=== PATIENT | male | born 1940 | race Caucasian/White ===

== ENCOUNTER 2018-06-10 06:19 | Day surgery (SDC) | payer MEDICARE, SELFPAY ==
[2018-06-10 06:29] VITALS: BP 143/67; PULSE 68; RESP 14; TEMP 36.3; O2SAT 96
[2018-06-10] MEDS: Lidocaine 2% Multi-Dose 50 ML VIAL (07:20)
--- NOTE | 2018-06-10 07:49 | PDOC.DSDIS_ITS ---
Discharge Plan Disposition Patient Disposition: HOME Discharge Details Reason For Visit: (R) TRIGGER FINGER Attending Provider: Rene Hyde Primary Care Provider: Pj Tolliver Home Meds and New Rx's Prescriptions: No Action blood sugar diagnostic [OneTouch Ultra Test] 1 EACH strip 1 strip Intradermal DAILY Qty: 100 RF: 4 blood-glucose meter [OneTouch Ultra2] 1 EACH kit 1 ea Miscellaneous DAILY Qty: 1 RF: 0 lancets [OneTouch Delica Lancets] 1 EACH misc 1 ea Intradermal DAILY Qty: 100 RF: 4 [id number] [Eye [place] Advantage] 1 EACH capsule 1 ea PO BID RF: 0 metformin 500 MG tablet 500 mg PO qPM Qty: 90 RF: 3 atorvastatin [Lipitor] 10 MG tablet 10 mg PO HS Qty: 90 RF: 4 tamsulosin [Flomax] 0.4 MG capsule 0.4 mg PO HS Qty: 90 RF: 4 fluorouracil 10 ML solution 1 applic Topical BID Qty: 10 RF: 0 Discharge Instructions Additional Instructions: KEEP YOUR RIGHT HAND ELEVATED ABOVE HEART LEVEL MUCH NEEDED TO HELP CONTROL PAIN AND SWELLING. EXERCISE YOUR FINGERS COMFORT ALLOWS. EXPECT SOME BLOODY DRAINAGE ON THE GAUZE BANDAGE. FOR SHOWERING TOMORROW, COVER YOUR BANDAGE WITH A PLASTIC BAG AND A RUBBER BAND ABOUT THE WRIST TO KEEP IT DRY. ON 06/12/18, YOU MAY REMOVE ALL OF YOUR BANDAGES AND GET YOUR WOUND WET IN THE SHOWER WITH SOAP AND WATER. PAT THE STITCH DRY AND COVER WITH A BANDAID. RESUME NORMAL USE TOLERATED. FOLLOW-UP WITH DR. HYDE IN 1 WEEK FOR STITCH REMOVAL. Stand Alone Forms: Elisabeth Mayorga (DSU) Activity:: Elevate Remove Dressings/Wound Care:: 48 hours Shower/Bathe:: 24 hours Activity:: Activity as Tolerated Diet:: As Tolerated Discharge Orders Discharge Orders: Discharge Order (Routine); Ordered 06/10/18 Ordered By: Rene Hyde
--- NOTE | 2018-06-10 08:31 | ROE_ITS ---
REPORT OF OPERATIVE PROCEDURE DATE OF PROCEDURE June 10, 2018 PREOPERATIVE DIAGNOSIS Trigger finger, right ring finger. POSTOPERATIVE DIAGNOSIS Trigger finger, right ring finger. PROCEDURE PERFORMED Release A1 shannon right ring finger. SURGEON Rene Spain M.D. [employer] REPORTER Tech ANESTHESIA Anesthetic 2% lidocaine plain. PREP ChloraPrep. INDICATIONS This patient has had numerous trigger fingers in the past. He developed triggering, which was quite p ainful involving his nondominant right ring finger. I recommended release of the A1 shannon. I saw the patient in the holding area at [facility]. He is well versed in the procedure. I marked his right r ing finger correctly. DESCRIPTION OF PROCEDURE He was brought to the Operating Suite where time-out was instituted. I then prepped his hand with Chl oraPrep; 2% lidocaine was then used to create an anesthetic blockade at the metacarpal phalangeal parminder nt level to the ring finger ray. After ensuring complete anesthesia to the ring finger, a transverse incision was made over the A1 shannon. Loupe magnification was utilized. Dissection was carried down to the flexor tendon sheath. Using a #15-scalpel blade, a small incision was made over the A1 shannon , a small amount of synovial fluid was encountered. I then extended the incision proximally and dista lly. I had the patient flex and extend the fingers until the ring finger no longer triggered. The wou nd was then irrigated with saline and closed with a single suture of #4-0 Nylon in a horizontal mattr ess fashion. The wound was dressed with Xeroform gauze, 4x4s and a 2-inch conforming gauze bandage. T he patient was taken to the Outpatient Recovery Room in satisfactory condition, tolerating the proced ure well.
== END 2018-06-10 08:01 | disposition home or self-care (01) ==
PROVIDERS: PCP Family Medicine; Visit Provider Orthopaedic Surgery
PROC: (CPT 26055; principal; 2018-06-10 07:30)
DX: M65.341 Trigger finger, right ring finger (principal); E11.9 Type 2 diabetes mellitus without complications; Z79.84 Long term (current) use of oral hypoglycemic drugs
CPT/HCPCS: 26055

== ENCOUNTER 2018-08-18 02:37 | Outpatient (CLI) | payer MEDICARE, SELFPAY | END 2018-08-18 02:57 | PROVIDERS: PCP Family Medicine; Visit Provider Family Medicine | DX: E11.9 Type 2 diabetes mellitus without complications (principal) | CPT/HCPCS: 36415; 83036 ==

== ENCOUNTER 2019-02-20 01:41 | Outpatient (CLI) | payer MEDICARE, SELFPAY ==
[2019-02-20 10:58] LABS: CREATININE 1.11 mg/dL (0.70-1.30)
== END 2019-02-20 02:01 ==
PROVIDERS: PCP Family Medicine; Visit Provider Family Medicine
DX: E11.9 Type 2 diabetes mellitus without complications (principal)
CPT/HCPCS: 36415; 82565; 83036

== ENCOUNTER 2019-08-22 02:39 | Outpatient (CLI) | payer MEDICARE, SELFPAY ==
[2019-08-22 14:41] LABS: Hemoglobin A1C 6.1 % (3.8-5.6)
== END 2019-08-22 02:59 ==
PROVIDERS: PCP Family Medicine; Visit Provider Family Medicine
DX: E11.9 Type 2 diabetes mellitus without complications (principal)
CPT/HCPCS: 36415; 83036

== ENCOUNTER 2020-01-25 15:57 | Outpatient (CLI) | payer MEDICARE, SELFPAY ==
--- NOTE | 2020-01-25 09:45 | DI.RAD_ITS ---
EXAM: XR KNEE RT 3V AP,LAT,CASIE CLINICAL HISTORY: Knee pain. TECHNIQUE: 2D digital imaging was performed. FINDINGS: There is moderate narrowing of the medial femoral tibial joint space. Mild periarticular spurring is seen at the posterior patella. There is a well corticated osseous density anterior to the tibial pl ateau which may represent a loose body. No acute fracture or dislocation is present. There is a sma ll joint effusion. Vascular calcifications are seen in the soft tissues. IMPRESSION: Degenerative changes in the right knee. Please see the above discussion for complete details. DATA REPOSITORY: RADIATION DOSE DELIVERED:
--- NOTE | 2020-01-25 09:45 | DI.RAD_ITS ---
EXAM: XR SHOULDER RT COMPLETE 2+V CLINICAL HISTORY: shoulder pain. TECHNIQUE: 2D digital imaging was performed. COMPARISON: CR XR SHOULDER RT COMPLETE 2+V from 01/25/2020 FINDINGS: BONES: No acute fracture is present. No bony destructive lesion is seen. JOINTS: No dislocation present. SOFT TISSUE: Normal. IMPRESSION: Unremarkable radiographs of the right shoulder. DATA REPOSITORY: RADIATION DOSE DELIVERED:
--- NOTE | 2020-01-25 09:45 | DI.RAD_ITS ---
EXAM: XR SHOULDER LT COMPLETE 2+V CLINICAL HISTORY: shoulder pain. TECHNIQUE: 2D digital imaging was performed. COMPARISON: No exams were available for comparison FINDINGS: Degenerative changes are present at the acromioclavicular joint. Well corticated tiny osseous densit ies are seen adjacent to the AC joint which appear old. The glenohumeral joint is well maintained. The bones are normally mineralized. The soft tissues are unremarkable. IMPRESSION: Osteoarthritis of the left AC joint. DATA REPOSITORY: RADIATION DOSE DELIVERED:
== END 2020-01-25 16:17 ==
PROVIDERS: PCP Family Medicine; Referring Provider Family Medicine; Visit Provider Student in an Organized Health Care Education/Training Program
DX: M25.511 Pain in right shoulder (principal); M25.512 Pain in left shoulder; M19.012 Primary osteoarthritis, left shoulder; M25.561 Pain in right knee; M25.461 Effusion, right knee; M17.11 Unilateral primary osteoarthritis, right knee; M75.82 Other shoulder lesions, left shoulder; M75.81 Other shoulder lesions, right shoulder; E11.9 Type 2 diabetes mellitus without complications; Z79.84 Long term (current) use of oral hypoglycemic drugs
CPT/HCPCS: 20610; 73562; 99203; 99214; 73030; J1040

== ENCOUNTER 2020-02-19 07:13 | Emergency (ER) | payer MEDICARE, SELFPAY ==
[2020-02-19 07:20] VITALS: BP 165/88; PULSE 94; RESP 18; TEMP 36.5; O2SAT 97
--- NOTE | 2020-02-19 07:24 | W.ED.GENAD ---
Discharge Plan Disposition Patient Disposition: HOME Condition: Stable Discharge Details Chief Complaint: GenMedical Clinical Impression: Arthritis Primary Care Provider: Pj Tolliver ED Provider: Reanrd Moyer [place] Meds and New Rx's Prescriptions: New prednisone 20 mg tablet 60 mg PO DAILY 4 Days Qty: 12 RF: 0 No Action atorvastatin [Lipitor] 10 mg tablet 10 mg PO HS Qty: 90 RF: 4 metformin 500 mg tablet 500 mg PO qPM Qty: 90 RF: 3 tamsulosin [Flomax] 0.4 mg capsule 0.4 mg PO HS Qty: 90 RF: 4 Eye [place] Advantage 1 EACH capsule 1 ea PO BID RF: 0 ibuprofen 600 mg Tablet 600 mg PO BID RF: 0 Discharge Instructions Instructions: Arthritis (ED), Polymyalgia Rheumatica (ED) Additional Instructions: follow up with your primary care provider this week if you feel more ill, have fevers, chest pain or difficulty breathing or vision changes return to the emergency department Medical Decision Making 80 yo male comes in with all over muscle and joint pains but worse in the upper back and shoulders. Denies fevers, rashes, chest pain, sob, vomit, vision changes. States sometimes it is hard to lift his arms up due to weakness in the shoulders in the morning. ARrivs hd stable with normal gait, no focal deficits, normal vascular exam, no rashes or joint swelling, nih of 0. I suspect he has underlying arthritis and possible pmr given description. Do not feel emergent workup for his arthritis symptoms indicated. Will start him on steroids and have him f/u with pcp, return precautions given Differential Diagnosis Differential Diagnosis: arthritis, osteoarthritis, pmr HPI General Mode of arrival: ambulatory. Date/Time Provider Initiated Documentation: 02/19/20 07:16. Limitations to Documentation: no limitations. Information obtained by: patient. History of Present Illness 80 year old M presents to the emergency department with the chief complaint of diffuse joint and muscle pains, described as moderate, and it has been constant. No relieving factors improve symptom(s), No exacerbating factors reported . Patient did receive the following treatments prior to arrival, none Related Data Home Medications Medication Instructions Recorded Confirmed [id number] 1 ea PO BID 05/24/17 02/19/20 [Eye [place] Advantage Softgel] atorvastatin 10 mg tablet 10 mg PO HS #90 tab-cap 08/29/19 02/19/20 metformin 500 mg tablet 500 mg PO qPM #90 tab-cap 08/29/19 02/19/20 tamsulosin 0.4 mg capsule 0.4 mg PO HS #90 cap 08/29/19 02/19/20 ibuprofen 600 mg PO BID 02/19/20 02/19/20 prednisone 60 mg PO DAILY 4 Days #12 tab 02/19/20 Previous Rx's Medication Instructions Recorded atorvastatin 10 mg tablet 10 mg PO HS #90 tab-cap 08/29/19 metformin 500 mg tablet 500 mg PO qPM #90 tab-cap 08/29/19 tamsulosin 0.4 mg capsule 0.4 mg PO HS #90 cap 08/29/19 prednisone 60 mg PO DAILY 4 Days #12 tab 02/19/20 Allergies Allergy/AdvReac Type Severity Reaction Status Date / Time No Known Allergies Allergy Unverified 02/19/20 07:27 General Stated Complaint: GenMedical NIKITA: 3 Review of Systems All systems reviewed & are unremarkable except as noted in HPI and below Constitutional Constitutional: Denies chills, Denies fever(s) and Denies weakness Cardiovascular Cardiovascular: Denies chest pain and Denies dyspnea Respiratory Respiratory: Denies cough and Denies dyspnea Gastrointestinal Gastrointestinal: Denies abdominal pain, Denies nausea and Denies vomiting Musculoskeletal Musculoskeletal: Denies joint swelling Neurologic Neurologic: Denies weakness [facility] Medical History (Updated 02/19/20 @ 07:25 by Renard Moyer MD) BPH (benign prostatic hyperplasia) DM (diabetes mellitus) Primary malignant neoplasm of colon Systolic murmur Surgical History (Updated 01/25/20 @ 10:02 by JESSICA Guo) 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 neoplasm-cecum Social History Smoking/Tobacco Use Status: Former Tobacco Use Quit Date: 08/16/1964 Second Hand Exposure: Yes Alcohol Intake: current Alcohol Intake frequency: 0-2 drinks per day Alcohol type: beer and hard liquor Drug use: Never Substance use type: does not use Caregiver/Support person: No Household members: spouse Housing: house Communication Needs: Hard of Hearing and Corrective Lenses Do you need help understanding health information?: Rarely Pets and animals: No Sexually active: No Do you think of yourself as: straight/heterosexual Current gender identity: male What is your relationship status?: How often do you talk on the phone with friends or family?: three or more times per week How often do you get together with friends or relatives?: decline to answer How often do you attend pentecostalism or gnosticist services?: decline to answer Do you belong to any clubs or organized social groups?: decline to answer Panel score (0-1 are the most socially isolated patients): 2 What type of physical activity do you participate in: walking Duration: 15-30 minutes/day Frequency: 5-6 times per week Neda/Jehovah'S Witness: Moravian Special neda needs: No Seatbelt use: always Helmet use: No Drive intox or ride w/intox parts delivery driver: No Do you feel safe at home: Yes Do you feel safe in your relationship?: Yes Exam Const General: no acute distress Orientation: alert HENAR Head: normal to inspection Ears: external ears normal General nose exam: external nose normal Mouth: moist mucous membranes Eyes General: appearance normal, both eyes and all related structures Neck Neck: normal visual inspection Resp Effort & Inspection: normal respiratory effort and able to speak in complete sentences Cardio Rate: regular rate Skin General skin exam: no rashes or lesions noted Neuro General: patient alert and patient oriented x3 Extrem General: normal to inspection Psych Mental Status: mental status grossly normal Course Vital Signs Vital signs: Vital Signs Temperature 36.5 C 02/19/20 07:20 Pulse 94 H 02/19/20 07:20 Respiratory Rate 18 02/19/20 07:20 Blood Pressure 165/88 H 02/19/20 07:20 Pulse Oximetry 97 02/19/20 07:20 Temperature 36.5 C 02/19/20 07:20 Temperature Source Skin 02/19/20 07:20 Pulse 94 H 02/19/20 07:20 Respiratory Rate 18 02/19/20 07:20 Blood Pressure 165/88 H 02/19/20 07:20 Blood Pressure Position Sitting 02/19/20 07:20 Pulse Oximetry 97 02/19/20 07:20 Oxygen Delivery Method Room Air 02/19/20 07:20 Oxygen Flow Rate 0 02/19/20 07:20 Pain Level 8 02/19/20 07:20 Comment 02/19/20 07:20
--- NOTE | 2020-02-19 07:27 | NUR.NOTE ---
Nursing Note: Faxed F/U PCP referral to PCP
[2020-02-19 07:29] VITALS: RESP 16
[2020-02-19 07:37] VITALS: BP 165/88; PULSE 94; RESP 16; TEMP 36.5; O2SAT 97
== END 2020-02-19 07:37 | disposition home or self-care (01) ==
PROVIDERS: Emergency Provider Emergency Medicine; PCP Family Medicine
DX: M79.18 Myalgia, other site (principal); M15.9 Polyosteoarthritis, unspecified; E11.9 Type 2 diabetes mellitus without complications; Z79.84 Long term (current) use of oral hypoglycemic drugs
CPT/HCPCS: 99283

== ENCOUNTER 2020-02-20 09:00 | Outpatient (CLI) | payer MEDICARE, SELFPAY ==
[2020-02-20 12:58] LABS: C-Reactive Protein 2.14 mg/dL (0.0-0.3)
[2020-02-20 13:04] LABS: Hemoglobin A1C 6.2 % (3.8-5.6)
[2020-02-20 13:18] LABS: Calculated LDL 76 mg/dL (<100); Cholesterol 163 mg/dL (<200); HDL Cholesterol 65 mg/dL (40-60); Triglyceride 111 mg/dL (<150)
[2020-02-20 13:30] LABS: ESR 35 mm/hr (1-20)
[2020-02-21 11:59] LABS: Lyme Ab w Rflx to Lyme Confirm Negative (Negative)
== END 2020-02-20 09:20 ==
PROVIDERS: PCP Family Medicine; Visit Provider Family Medicine
DX: E11.65 Type 2 diabetes mellitus with hyperglycemia (principal); F48.8 Other specified nonpsychotic mental disorders; M62.81 Muscle weakness (generalized); R73.9 Hyperglycemia, unspecified; E11.9 Type 2 diabetes mellitus without complications
CPT/HCPCS: 36415; 80061; 85652; 82565; 83036; 86140; 86618

== ENCOUNTER 2020-04-10 11:56 | Outpatient (CLI) | payer MEDICARE, SELFPAY ==
[2020-04-10 12:53] LABS: Abs Immature Grans 0.06 10^3/uL (0.0-0.06); Absolute Basophil Count 0.02 10^3/uL (0.0-0.2); Absolute Lymphocyte Count 0.43 10^3/uL (1.2-3.4); Absolute Monocyte Count 0.61 10^3/uL (0.1-0.8); Basophils % 0.3; Eosinophils % 1.7; HCT 39.4 % (40.0-50.0); HGB 13.4 g/dL (13.5-17.5); Lymphocytes % 7.3; MCH 29.3 pg (27.0-33.0); MCV 86.2 fL (80-95); MPV 9.5 fL (8.0-11.0); Monocytes % 10.3; Neutrophils % 79.4; Nucleated RBC 0 %; Platelet Count 241 10^3/uL (130-400); RBC 4.57 10^6/uL (4.36-5.78); RDW 13.2 % (11.8-14.1); RDW-SD 40.4 fL; WBC 5.92 10^3/uL (4.4-10.8)
[2020-04-10 13:40] LABS: C-Reactive Protein 1.49 mg/dL (0.0-0.3)
[2020-04-10 14:14] LABS: ESR 41 mm/hr (1-20)
[2020-04-10 21:25] LABS: Rheumatoid Factor <8.6 IU/mL (<12.0)
[2020-04-11 15:46] LABS: ANA Interpretation Negative (Negative)
[2020-04-12 08:51] LABS: Iron 40 ug/dL (65-175)
[2020-04-12 09:18] LABS: Ferritin 414 ng/mL (26-388); Vitamin B12 273 pg/mL (193-986)
== END 2020-04-10 12:16 ==
PROVIDERS: PCP Family Medicine; Visit Provider Family Medicine
DX: D64.9 Anemia, unspecified (principal); F48.8 Other specified nonpsychotic mental disorders; M25.50 Pain in unspecified joint
CPT/HCPCS: 36415; 85652; 82607; 82728; 83540; 85025; 86038; 86140; 86431

== ENCOUNTER 2020-05-10 01:51 | Outpatient (CLI) | payer MEDICARE, SELFPAY ==
[2020-05-10 13:14] LABS: C-Reactive Protein 0.37 mg/dL (0.0-0.3)
== END 2020-05-10 02:11 ==
PROVIDERS: PCP Family Medicine; Visit Provider Nurse Practitioner Family
DX: M35.3 Polymyalgia rheumatica (principal)
CPT/HCPCS: 36415; 86140

== ENCOUNTER 2020-06-07 20:23 | Emergency (ER) | payer MEDICARE, SELFPAY ==
[2020-06-07 20:25] VITALS: BP 133/79; PULSE 97; RESP 16; O2SAT 94
--- NOTE | 2020-06-07 20:30 | DI.CT_ITS ---
EXAM: CT ABDOMEN PELVIS W CLINICAL HISTORY: gi bleeding, hx of colon cancer w/ resection COMPARISON: CT ABD PELVIS WITH CONTRAST from 07/09/2010 FINDINGS: CT examination of the abdomen and pelvis was performed with a bolus infusion of 100 cc of Omnipaque 3 50. Images obtained through the lung bases show a 6 millimeter in diameter noncalcified left basilar nodule. There is mild gastric distention which is nonspecific. The duodenal wall is thickened. There is a r oughly 10 cm in diameter retroperitoneal mass which appears to involve the head of the pancreas and perhaps the descending duodenum and which encases celiac trunk and SMA. There is associated mesenteri c adenopathy. There is associated retroperitoneal adenopathy in para-aortic and paracaval nodes and r etrocrural nodes, the largest bulky adenopathy is para-aortic and measures up to about 4 cm in diamet er. Tail of the pancreas appears intact. Pancreatic duct nondilated. Gallbladder mildly distended, n o gross common duct dilatation. Mildly dilated collecting system of the right kidney and proximal ur eter, possible obstruction by retroperitoneal process of the proximal ureter. No distal ureteral abn ormality. No left renal abnormality. Adrenals appear intact. No gross small bowel obstruction. Quest ion mild small bowel wall thickening in the mid abdomen, nonspecific. No colonic obstruction. Prior right colectomy noted. Urinary bladder unremarkable in appearance. There is an indeterminate low-attenuation right hepatic lobe lesion measuring about 2.4 cm in diamete r. This measured about 22 millimeters in diameter on prior CT of June 2010 and is unlikely to re present a metastatic lesion. An additional tiny sub diaphragmatic right hepatic lobe lesion is also seen probably representing cyst. No gross focal bony erosive or destructive lesion seen. Abdominal aorta is of normal diameter. There is marked mesenteric edema and/or direct infiltration by the large retroperitoneal mass. IMPRESSION: Large retroperitoneal mass with encasement of major vascular structures, marked mesenteric edema and/ or infiltration, and involvement of adjacent organs including pancreas, duodenum and right ureter. T he presumably neoplastic mass could be pancreatic in origin. Other etiologies not excluded. 6 millimeter in diameter left lower lobe intrapulmonary nodule, not present on prior CT of 2009, inde terminate and could represent metastatic disease. Additional evaluation with chest CT recommended. RADIATION DOSE DELIVERED: 791.08mGy.cm Total DLP
[2020-06-07 20:34] VITALS: BP 133/79; PULSE 90; RESP 16; TEMP 36.2; O2SAT 95
--- NOTE | 2020-06-07 20:46 | NUR.NOTE ---
Nursing Note:referal sent to surgical for arley colonoscopy 06/07/20
--- NOTE | 2020-06-07 20:49 | ED.GENADUL_ITS ---
Discharge Plan Disposition Patient Disposition: HOME Condition: Stable Discharge Details Clinical Impression: Mass of pancreas, BRBPR (bright red blood per rectum) Primary Care Provider: Pj Tolliver ED Provider: Niarj Crump Home Meds and New Rx's Prescriptions: Continued atorvastatin [Lipitor] 10 mg tablet 10 mg PO HS Qty: 90 RF: 4 metformin 500 mg tablet 500 mg PO qPM Qty: 90 RF: 3 tamsulosin [Flomax] 0.4 mg capsule 0.4 mg PO HS Qty: 90 RF: 4 Eye Coolidge Advantage 1 EACH capsule 1 ea PO BID RF: 0 prednisone 10 mg Tablet 12 mg PO DAILY AM RF: 0 Discharge Instructions Instructions: Rectal Bleeding (ED), Pancreatic Cancer (DC) Additional Instructions: At this time the CAT scan shows evidence concerning for a pancreatic mass or cancer. It is important that you follow-up promptly with the surgeon. We have placed a referral with Dr. Cristobal. The blood that you are noticing in your stool may be related to this. At this time your blood levels are stable enough that they do not require additional bladder inpatient management. If you notice any worsening of your symptoms, or any new symptoms such as vomiting, diarrhea, fever, chills, shortness of breath, chest pain, numbness, weakness, or fainting , please return immediately to the emergency department for reevaluation. Please follow up with the surgeon Dr. Cristobal as soon as possible for reassessment and reevaluation. As always, it was a pleasure participating in your medical care today. Referrals: Karie Lanier MD [ [facility] STAFF PHYSICIAN] - Lulu Gomez MD [ [facility] STAFF PHYSICIAN] - Pallavi Pierce DO [OSTEOPATHIC DOCTOR] - Medical Decision Making 80-year-old male with a past medical history of colon cancer, high cholesterol, prostatic hypertrophy, with partial colectomy in 2010 who presents today for evaluation of abdominal pain, diarrhea, and rectal bleeding. The patient states that for the last 3 weeks he has had mild loose stools, with a few episodes of loose diarrhea every day. He did have some outpatient testing performed, including fecal PCR however these results are not yet back as they have been send out test. He did recently start taking Imodium, and this did begin improving his symptoms and his stools are now more formed. However today he noticed that he had bright red blood with his bowel movements. Bowel movements were not overly painful. He denies any significant tearing or searing sensation. He does admit to mild generalized lower abdominal pain, vomiting weight loss. He denies any foreign travel, other sick contacts with similar symptoms, antibiotic use, camping or drinking from streams. He states that last time when his colon cancer was discovered it was discovered by a positive colonoscopy. He denies a history of significant bleeding otherwise. He is not on blood thinners. No other complaints at this time. Exam is unremarkable aside for mild abdominal firmness on the right side of the abdomen, rectal exam benign. No evidence of significant tenderness on palpation, no abdominal distention. I do feel based on history patient definitely needs a colonoscopy not emergently but certainly urgently. We will get a CT scan to evaluate for any significant mass or other abnormality with his history of cancer. We will get basic blood work to evaluate for signs of anemia which I feel unlikely. Vital signs notably stable. No indication for emergent transfusion at this time. Outpatient stool studies were performed by PCP, however study results are not yet back as they were send out test. No risk factors for C. difficile as patient denies any antibiotic use, or other concerning historical components. His diarrhea is notably improving per patient after taking the Imodium. Will manage conservatively, monitor closely and reassess. 11 PM Laboratory work of his return, hemoglobin slightly low at 13, which does appear to be a slight drop since his previous hemoglobin in March, however not critical requiring additional blood products. He does demonstrate notable transaminitis, as well as an elevated conjugated bilirubin at 2, total bilirubin of 2.7, and alk phos of 400 with a lipase of 2200. CT scan results have returned, and show evidence of a notable pancreatic mass thickening of the duodenum, and other abnormalities. Concerning obviously for malignancy. Patient remained stable, he is able to tolerate p.o. fluid, and has had no vomiting. Pain is notably well managed. Bleeding is likely from vascular engorgement in the intestinal tracts with subsequent oozing. He is stable and feels comfortable going home. However I do feel that he would benefit from prompt surgical follow-up. I did contact Dr. Cristobal, and discussed the case with her. She would like to see the patient Wednesday morning for further evaluation potential biopsy and reassessment. I spent a long time discussing symptoms requiring prompt return and further evaluation with both the patient and his who is at bedside. They understand this. I discussed the findings and the current clinical scenario with the patient and he is well aware of the plan moving forward. I have extensively reviewed the treatment plan and discharge instructions with the patient and their family. I have addressed all patient concerns at this time. The patient and family was made aware of what symptoms to monitor for that would warrant a return to the emergency department. Discussed the plan with the patient and family, they demonstrate verbal understanding and agreement with our assessment and plan at this time. HPI General Date/Time Provider Initiated Documentation: 06/07/20 20:28 . HPI Narrative: 80-year-old male with a past medical history of colon cancer, high cholesterol, prostatic hypertrophy, with partial colectomy in 2009 who presents today for evaluation of abdominal pain, diarrhea, and rectal bleeding. The patient states that for the last 3 weeks he has had mild loose stools, with a few episodes of loose diarrhea every day. He did have some outpatient testing performed, including fecal PCR however these results are not yet back as they have been send out test. He did recently start taking Imodium, and this did begin improving his symptoms and his stools are now more formed. However today he noticed that he had bright red blood with his bowel movements. Bowel movements were not overly painful. He denies any significant tearing or searing sensation. He does admit to mild generalized lower abdominal pain, vomiting weight loss. He denies any foreign travel, other sick contacts with similar symptoms, antibiotic use, camping or drinking from streams. He states that last time when his colon cancer was discovered it was discovered by a positive colonoscopy. He denies a history of significant bleeding otherwise. He is not on blood thinners. No other complaints at this time. Related Data Home Medications Medication Instructions Recorded Confirmed Eye Coolidge Advantage 1 ea PO BID 05/24/17 06/07/20 atorvastatin 10 mg tablet 10 mg PO HS #90 tab-cap 08/29/19 06/07/20 metformin 500 mg tablet 500 mg PO qPM #90 tab-cap 08/29/19 06/07/20 tamsulosin 0.4 mg capsule 0.4 mg PO HS #90 cap 08/29/19 06/07/20 prednisone 12 mg PO DAILY AM 06/07/20 06/07/20 Previous Rx's Medication Instructions Recorded atorvastatin 10 mg tablet 10 mg PO HS #90 tab-cap 08/29/19 metformin 500 mg tablet 500 mg PO qPM #90 tab-cap 08/29/19 tamsulosin 0.4 mg capsule 0.4 mg PO HS #90 cap 08/29/19 Allergies Allergy/AdvReac Type Severity Reaction Status Date / Time No Known Allergies Allergy Unverified 06/07/20 20:36 General Stated Complaint: GI Bleed NIKITA: 3 Review of Systems All systems reviewed & are unremarkable except as noted in HPI and below PFSH Medical History BPH (benign prostatic hyperplasia) DM (diabetes mellitus) Primary malignant neoplasm of colon Systolic murmur Surgical History 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 neoplasm-cecum Family History Mother , 96 Dementia Father , 69 Cancer Sister Personal history of malignant neoplasm colon Colon cancer Sister No problems noted. Sister No problems noted. Brother Heart disease pacemaker Maternal Grandfather No problems noted. Paternal Grandfather No problems noted. Maternal Grandmother No problems noted. Paternal Grandmother No problems noted. Daughter Essential hypertension Son No problems noted. Son No problems noted. Social History Smoking/Tobacco Use Status: Former Tobacco Use Quit Date: 08/16/1964 Tobacco: How many years used: 6 Alcohol Intake: current Alcohol Intake frequency: 0-2 drinks per day Alcohol type: beer Substance use type: does not use Caregiver/Support person: No Household members: spouse Communication Needs: Hard of Hearing Do you need help understanding health information?: Often Pets and animals: No Sexually active: No Do you think of yourself as: straight/heterosexual Current gender identity: male What is your relationship status?: How often do you talk on the phone with friends or family?: twice per week How often do you get together with friends or relatives?: decline to answer How often do you attend confucianism or jewish services?: decline to answer Do you belong to any clubs or organized social groups?: no Panel score (0-1 are the most socially isolated patients): 1 What type of physical activity do you participate in: walking Duration: 30-45 minutes/day Frequency: 5-6 times per week Neda/Judaism: [employer] Special neda needs: No Seatbelt use: always Drive intox or ride w/intox route 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 3.ENT: Atraumatic external nose and ears. Moist MM. Neck: Symmetric, trachea midline, No thyromegaly. 4.CVS: +S1/S2, systolic murmur present. Peripheral pulses 2+ and equal in all extremities. Brisk capillary refill in all extremities. 5.RESP: Unlabored respiratory effort. Clear to auscultation bilaterally. No wheezes rales or rhonchi 6.GI: Soft, Nontender/Nondistended, No hepatosplenomegaly. Mild firmness vs mass on right side of upper and lower abd. No guarding or rebound. No evidence of an acute surgical abdomen. Rectal exam demonstrates no evidence of fissure, significant hemorrhoid or active bleed. No current blood. 7.MSK: Normocephalic/Atraumatic, Extremities w/o deformity or ttp No cyanosis or clubbing, Normal movement of all extremities 8.Skin: Warm, Dry. No rashes or lesions. 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 Sensation grossly intact, no focal neurologic deficits. 10.Psych: (AAO) x3. Appropriate mood and affect Course Vital Signs Vital signs: Vital Signs Temperature 36.2 C L 06/07/20 20:34 Pulse 90 06/07/20 20:34 Respiratory Rate 16 06/07/20 20:34 Blood Pressure 133/79 06/07/20 20:34 Pulse Oximetry 95 06/07/20 20:34 Temperature 36.2 C L 06/07/20 20:34 Temperature Source Skin 06/07/20 20:34 Pulse 90 06/07/20 20:34 Respiratory Rate 16 06/07/20 20:34 Respiratory Effort Non-Labored 06/07/20 20:35 Blood Pressure 133/79 06/07/20 20:34 Blood Pressure Position Supine 06/07/20 20:34 Pulse Oximetry 95 06/07/20 20:34 Oxygen Delivery Method Room Air 06/07/20 20:34 Oxygen Flow Rate 0 06/07/20 20:34 Pain Level 2 06/07/20 20:34
[2020-06-07 20:57] LABS: Abs Immature Grans 0.11 10^3/uL (0.0-0.06); Absolute Basophil Count 0.02 10^3/uL (0.0-0.2); Absolute Eosinophil Count 0.03 10^3/uL (0.0-0.7); Absolute Lymphocyte Count 0.36 10^3/uL (1.2-3.4); Absolute Monocyte Count 0.55 10^3/uL (0.1-0.8); Absolute Neutrophil Count 4.27 10^3/uL (1.2-6.7); Basophils % 0.4; Eosinophils % 0.6; HCT 38.6 % (40.0-50.0); Immature Grans % 2.1; Lymphocytes % 6.7; MCH 29.8 pg (27.0-33.0); MCHC 33.7 % (32.0-36.0); MCV 88.5 fL (80-95); MPV 9.8 fL (8.0-11.0); Monocytes % 10.3; Neutrophils % 79.9; Nucleated RBC 0 %; Platelet Count 270 10^3/uL (130-400); RBC 4.36 10^6/uL (4.36-5.78); RDW-SD 44.7 fL; WBC 5.34 10^3/uL (4.4-10.8)
[2020-06-07] MEDS: Normal Saline 500 ML IV (21:03)
[2020-06-07 21:14] LABS: ALT 428 U/L (16-63); AST 329 U/L (15-37); Albumin 3.4 g/dL (3.4-5.0); Alkaline Phosphatase 407 U/L (46-116); BUN 25 mg/dL (7-18); Bilirubin, Total 2.7 mg/dL (0.2-1.0); CREATININE 1.22 mg/dL (0.70-1.30); Calcium 9.5 mg/dL (8.5-10.1); Chloride 99 mmol/L (98-107); Estimated GFR 57.45 (mL/min/1.73m2); Glucose 476 mg/dL (74-106); Potassium 3.9 mmol/L (3.5-5.1); Sodium 135 mmol/L (136-145); Total Protein 7.4 g/dL (6.4-8.2)
[2020-06-07] MEDS: Omnipaque 350 MG/ML 100 ML BTL IJ (21:30)
[2020-06-07] MEDS: Normal Saline - Diluent 50 ML VIAL IV (21:35)
[2020-06-07] MEDS: Normal Saline Flush 10 ML SYR IVP (21:37)
[2020-06-07 21:45] VITALS: BP 124/74; PULSE 72; RESP 16; O2SAT 93
[2020-06-07 21:51] LABS: Bilirubin, Direct 2.07 mg/dL (0.00-0.20)
[2020-06-07 22:03] LABS: Lipase 2275 U/L (73-393)
[2020-06-07 22:15] VITALS: BP 116/69; PULSE 70; RESP 16; O2SAT 93
--- NOTE | 2020-06-07 22:28 | DI.VRAD_ITS ---
Addendum created by Camilo Rodriguez MD on 06/07/2020 10:36:23 PM EDT: THIS REPORT CONTAINS FINDINGS THAT MAY BE CRITICAL TO PATIENT CARE. The findings were verbally communicated via telephone conference with ARIANNA NELSON at 10:32 PM EDT on 06/07/2020. The findings were acknowledged and understood. Also noted, but not discussed in the below report is a retrocrural lymph node on series 4, image 29. This measures approximately 14 x 10 mm. There are multiple retroperitoneal lymph nodes. Enlarged retroperitoneal lymph node is seen left para-aortic measuring 3.9 x 3.0 cm. Additional retroperitoneal enlarged lymph nodes are noted. The possibility of this being a lymphoma post treatment for colon cancer should also be considered. This was discussed with Dr. Nelson. As mentioned in the report, a primary pancreatic process should also be considered. This is less likely metastatic colon cancer, but this cannot be completely excluded based on imaging alone. Patient is also noted to have lung base atelectatic changes and bronchiectasis features. There is mild splenomegaly noted as well. Initial report created on 06/07/2020 10:27:56 PM EDT: PROCEDURE INFORMATION: Exam: CT Abdomen And Pelvis With Contrast Exam date and time: 06/07/2020 9:35 PM Age: 80 years old Clinical indication: Other: Gi bleeding, HX of colon CA w/ resection; Prior surgery; Surgery date: 6+ months TECHNIQUE: Imaging protocol: Computed tomography of the abdomen and pelvis with intravenous contrast. Contrast material: OMNIPAQUE 350; Contrast volume: 100 ml; Contrast route: INTRAVENOUS (IV); COMPARISON: No relevant prior studies available. FINDINGS: Liver: Posterior right hepatic low-attenuation focus measuring 2.4 cm. Significance uncertain. Cannot exclude a small solid liver lesion. Ultrasound evaluation may be helpful for further investigation. Gallbladder and bile ducts: Normal. No calcified stones. No ductal dilation. Pancreas: Masslike features which appear to be arising from the pancreatic head or uncinate process. Spleen: Normal. No splenomegaly. Adrenals: Normal. No mass. Kidneys and ureters: Mild right hydronephrosis which appears to be related to right ureteral involvement posterior to the retroperitoneal mass. No renal calculi. No renal inflammation. Left kidney is unremarkable. Stomach and bowel: Small bowel loops show proximal edema. Distal bowel loops appear to be involved by the mesenteric masslike process. There may be areas of serosal implant. Slight irregularity of small bowel loops is noted within the mid jejunum and proximal ileum. No obstructive features. Colonic diverticulosis. No acute diverticulitis. Previous right hemicolectomy. There is gastric distention. There appears to be some extrinsic compression at the junction of the 2nd and 3rd portion of the duodenum related to the pancreatic head process. Appendix: No evidence of appendicitis. Intraperitoneal space: Retroperitoneal mass encasing the mesenteric vessels adjacent to the pancreatic head. Retroperitoneal space: There is a prominent process which appears to be arising from the retroperitoneum in the region of the pancreatic head. This is a large low-attenuation focus which measures approximately 7.3 x 6.9 cm. Possibility of a pancreatic head mass should be considered. This encases the superior mesenteric artery. This encases the proximal celiac artery. This encases the hepatic artery. This displaces the splenic vein and attenuates the splenic vein. This process extends inferiorly within the mesenteric root along the mesenteric venous structures. There appears to be venous congestion of the superior mesenteric venous tributaries. Vasculature: Encasement of retroperitoneal vasculature. Abdominal aorta is unremarkable. Inferior vena cava is compressed superiorly. Lymph nodes: Unremarkable. No enlarged lymph nodes. Urinary bladder: Unremarkable as visualized. Reproductive: Nonspecific prostatic enlargement. Prostatic calcifications. Some hyperdense regions within the superior prostatic lobules. Significance uncertain. Bones/joints: Degenerative lumbar spine disease. Soft tissues: Unremarkable. IMPRESSION: 1. Large masslike process which appears to be arising within the retroperitoneum and may be related to the pancreatic head or uncinate process. This encases retroperitoneal arteries and venous structures including the celiac artery, hepatic artery, superior mesenteric artery, superior mesenteric vein, and splenic vein. There is extension along the mesentery with what appears to be some venous engorgement of superior mesenteric venous tributaries. With a history of colon cancer and a right colectomy, the possibility of this being metastatic disease should be considered, but this is an atypical appearance for retroperitoneal colon cancer metastases. 2. Right anterior abdominal small bowel loops with some irregularity and possibility of serosal implants or possibly venous congestion. 3. Colonic diverticulosis without acute diverticulitis. Previous right hemicolectomy. 4. Mild right hydronephrosis which may be related to ureteral involvement from the retroperitoneal masslike process. 5. Prostatic enlargement. 6. Gastric distention. Cannot exclude outlet obstruction in the region of the junction of the 2nd and 3rd portion of the duodenum related to extrinsic mass effect. 7. Posterior right hepatic 2.4 cm low-attenuation focus. Cannot exclude a metastatic lesion. Dictated and Authenticated by: Camilo Rodriguez MD. Ordering:KAVIN Healy MD
[2020-06-10 10:59] LABS: Hepatitis A Antibody IgM Negative (Negative); Hepatitis B Core Antibody Negative (Negative); Hepatitis B surface Ag Negative (Negative); Hepatitis C Ab w Rflx HCV PCR Negative (Negative)
== END 2020-06-07 22:55 | disposition home or self-care (01) ==
PROVIDERS: Emergency Provider Student in an Organized Health Care Education/Training Program; PCP Family Medicine
DX: K62.5 Hemorrhage of anus and rectum (principal); R93.5 Abnormal findings on diagnostic imaging of other abdominal regions, including retroperitoneum; R10.30 Lower abdominal pain, unspecified; R74.01 Elevation of levels of liver transaminase levels; R74.8 Abnormal levels of other serum enzymes; Z85.038 Personal history of other malignant neoplasm of large intestine; E11.9 Type 2 diabetes mellitus without complications; Z79.84 Long term (current) use of oral hypoglycemic drugs
CPT/HCPCS: 36415; 80053; 83690; 86704; 86709; 86803; 87340; 96360; 99285; 74177; 82248; 85025; J3490

== ENCOUNTER → 2020-06-10 09:52 | Outpatient (BNVA) | payer MEDICARE, SELFPAY | PROVIDERS: PCP Family Medicine; Referring Provider Family Medicine; Visit Provider Surgery | DX: R69 Illness, unspecified (principal) ==

== ENCOUNTER 2020-06-10 10:37 | Outpatient (CLI) | payer MEDICARE, SELFPAY ==
[2020-06-10 10:54] LABS: Abs Immature Grans 0.09 10^3/uL (0.0-0.06); Absolute Basophil Count 0.02 10^3/uL (0.0-0.2); Absolute Lymphocyte Count 0.18 10^3/uL (1.2-3.4); Absolute Monocyte Count 0.66 10^3/uL (0.1-0.8); Absolute Neutrophil Count 16.91 10^3/uL (1.2-6.7); Basophils % 0.1; HCT 36.4 % (40.0-50.0); Immature Grans % 0.5; MCH 29.8 pg (27.0-33.0); MCV 90.3 fL (80-95); MPV 10.1 fL (8.0-11.0); Monocytes % 3.7; Neutrophils % 94.7; Nucleated RBC 0 %; Platelet Count 237 10^3/uL (130-400); RBC 4.03 10^6/uL (4.36-5.78); RDW 14.5 % (11.8-14.1); RDW-SD 47.2 fL; WBC 17.86 10^3/uL (4.4-10.8)
[2020-06-10 11:06] LABS: ALT 539 U/L (16-63); AST 306 U/L (15-37); Alkaline Phosphatase 596 U/L (46-116); Anion Gap 8.8 mmol/L (3-11); BUN 23 mg/dL (7-18); Bilirubin, Total 6.3 mg/dL (0.2-1.0); CO2 25.2 mmol/L (21.0-32.0); CREATININE 1.13 mg/dL (0.70-1.30); Calcium 9.2 mg/dL (8.5-10.1); Chloride 99 mmol/L (98-107); Glucose 486 mg/dL (74-106); Potassium 4.2 mmol/L (3.5-5.1); Sodium 133 mmol/L (136-145); Total Protein 6.7 g/dL (6.4-8.2)
[2020-06-10 18:59] LABS: CEA 62.4 ng/mL (See Note)
[2020-06-18 16:09] LABS: CA 19-9 1400 U/mL (<35)
== END 2020-06-10 10:57 ==
PROVIDERS: PCP Family Medicine; Visit Provider Surgery
DX: K86.89 Other specified diseases of pancreas (principal); Z85.038 Personal history of other malignant neoplasm of large intestine; E11.9 Type 2 diabetes mellitus without complications; Z79.84 Long term (current) use of oral hypoglycemic drugs
CPT/HCPCS: 36415; 80053; 99213; 82378; 85025; 86301

== ENCOUNTER 2020-06-17 08:59 | Inpatient (IN) | payer MEDICARE, SELFPAY ==
[2020-06-17] VITALS (61 sets, daily range): BP systolic 45–134; BP diastolic 30–99; PULSE 87–117; RESP 9–26; TEMP 36.5–36.9; O2SAT 90–100
--- NOTE | 2020-06-17 09:00 | DI.RAD_ITS ---
EXAM: XR CHEST 1V IN DI DEPT CLINICAL HISTORY: weakness, tachycardia TECHNIQUE: 2D digital imaging was performed. COMPARISON: No exams were available for comparison FINDINGS: MEDIASTINUM: Normal. HEART: Normal. PULMONARY VASCULATURE: Normal. LUNGS: Clear. PLEURAL SPACE: No pleural effusion or pneumothorax. BONE:Within normal limits for the patient's age. OTHER FINDINGS:Normal. IMPRESSION: No acute pulmonary findings. DATA REPOSITORY: RADIATION DOSE DELIVERED:
--- NOTE | 2020-06-17 09:00 | RT.EKG_ITS ---
APPROVED REPORT Exam: Resting ECG Patient Location: E HR:117 bpm ECG Measurements Heart Rate 117 AXIS UT 137 P 45 QRSd 69 QRS -2 QT 306 T 185 QTc 426 Conclusion Sinus tachycardia...rate> 99 Atrial premature complex...SV complex w/ short R-R interval Probable left atrial enlargement...P >50mS, <-0.10mV V1 sinus tachycardia at 117, occasional PAC, nonspecific ST changes, no STEMI, nondiagnostic EKG
--- NOTE | 2020-06-17 09:23 | ED.GENADUL_ITS ---
Discharge Plan Disposition Condition: Deteriorating Discharge Details Chief Complaint: GenMedical Admit Date/Time: 06/17/20 18:16 Admit Provider: Maura Castellanos Attending Provider: Maura Castellanos Primary Care Provider: Pj Tolliver ED Provider: Nicohle Cain Discharge Instructions Activity:: Activity as Tolerated Equipment/Supplies:: No Equipment Needed Diet:: As Tolerated Discharge Orders Discharge Orders: Discharge Order (Routine); Ordered 06/21/20 Ordered By: Radha Henao Discharge Data Discharge Date/Time-TO BE ENTERED AT DEPARTURE: 06/17/20 16:39 Medical Decision Making Jason Laird is a 80-year-old man with a history of iof-ldhddnj-cnkagvxxj diabetes, colon cancer in the past, recently diagnosed pancreatic mass with biliary stent placed 07/15 at [facility] presenting to the emergency department with fatigue, general malaise. On exam patient appears ill. He is alert, does not appear to be in pain. There is mild generalized abdominal tenderness to palpation. Concern for post procedure complication, dehydration, metabolic/electrolyte disturbance, other. Doubt UTI, respiratory infection, acute coronary syndrome. Exam/history at this time is not consistent with meningitis, acute aortic process, pulmonary embolism, other acute vascular p rocess. Plan for EKG, screening labs, chest x-ray, CT abdomen/pelvis, UA, IV fluid hydration, telemetry. Labs show glucose >700 without DKA, elevated WBC, elevated lactate. CT non- diagnostic. I discussed Pt presentation and results with GI on-call at [facility] [place] [facility] [place], who recommended IV zosyn, but stated symptoms unlikely to be related to infectious post-procedure complication, stated that symptoms unlikely to 2/2 post-procedure infection/complication, stated Pt okay to remain at [facility] for admission, they would be available in consultation. Pt admitted to Dr. Castellanos. Clinical Impression: lactic acidosis, abdominal pain Disposition: [facility] inpatient Medical Records Medical records reviewed: Yes I reviewed the patient's medical records. Imaging Data Radiologic Study: Attestation: I personally reviewed and interpreted this imaging study as follows: Radiologist's impression: EXAM: CT ABDOMEN PELVIS W CLINICAL HISTORY: abd pain, recent biliary stent TECHNIQUE: Imaging Protocol: Axial computed tomography images with coronal and sagittal reformatted images were created and reviewed CONTRAST MATERIAL: Intravenous: Omnipaque 350 Contrast volume:100 mL Oral: No COMPARISON: CT CT ABDOMEN PELVIS W from 06/07/2020 FINDINGS: ABDOMEN: Lung Bases: Dependent atelectasis. Liver: Normal density. The hypodensity in the posterior segment of the right lobe of the liver is unchanged. A small cyst is seen in the dome of the right lobe of the liver. Portal, Superior Mesenteric, and Splenic Veins: Please see the pancreatic section. Gallbladder and Biliary Tract: No radiodense calculus or dilation. There has been interval placement of a biliary stent. Pneumobilia is seen in the liver. Pancreas: There is again seen a 10 cm retroperitoneal mass which appears to arise from the pancreas. It encases portions of the celiac axis, superior mesenteric artery and vein and portal vein. There is displacement and possible involvement of the duodenum. Significant abdominal and retroperitoneal adenopathy is again noted. Spleen: Normal. Adrenals: No masses seen. Kidneys: Normal size, contour and axis. No radiodense stones or obstructive uropathy. No masses seen. There is unchanged dilatation of the proximal right ureter which may be secondary to obstruction by the retroperitoneal process. Abdominal Aorta: Abdominal portion non-dilated. Atherosclerosis. Bowel: Stomach is distended. There is mild thickening of the wall of the distal stomach and proximal duodenum. This may be secondary to the adjacent neoplasm. A secondary infectious or inflammatory process cannot be excluded. There is also mild thickening of loops of small bowel in the lower abdomen. No evidence of acute appendicitis. Colonic diverticulosis without evidence of acute diverticulitis. Partial right colectomy. Peritoneal Cavity: There is again seen mesenteric edema and soft tissue thickening likely secondary to the retroperitoneal mass. Lymph Nodes: Extensive abdominal and retroperitoneal adenopathy. Bones: Stable lucencies are seen in the bones in the pelvis. Degenerative changes are seen in the spine. Soft Tissues: Unremarkable. PELVIS: Bladder: Symmetric distention, no gross wall thickening. Reproductive Organs: Enlarged prostate gland. Lymph Nodes: Within normal limits. Bones: Please see above. IMPRESSION: 1. Interval placement of a biliary stent. 2. 10 cm retroperitoneal mass which encases retroperitoneal vascular structures with possible involvement of the stomach and duodenum. Extensive abdominal and retroperitoneal adenopathy. Probable extension of disease into the mesentery. 3. Mild thickening of the wall of the distal stomach, duodenum and small bowel loops in the abdomen. While an infectious or inflammatory process should be considered neoplastic involvement cannot be excluded. 4. Stable lucencies in the bones of the pelvis. 5. Stable hepatic lesion. 6. Findings were discussed with the emergency department on the date of the examination. Lab Data Lab results reviewed: Yes I reviewed the patient's lab results. Labs: 06/17/20 09:20 Blood Blood Culture - Pending 06/17/20 09:54 Blood Blood Culture - Pending Laboratory Tests Range/Units 06/17/20 06/17/20 06/17/20 09:20 09:20 09:20 WBC (4.4-10.8) 10^3/uL 13.26 H RBC (4.36-5.78) 10^6/uL 4.58 Hgb (13.5-17.5) g/dL 13.5 Hct (40.0-50.0) % 44.0 MCV (80-95) fL 96.1 H MCH (27.0-33.0) pg 29.5 MCHC (32.0-36.0) % 30.7 L RDW (11.8-14.1) % 15.6 H Plt Count (130-400) 10^3/uL 289 MPV (8.0-11.0) fL 11.5 H Immature Gran % 2.4 Neutrophils % 91.0 Lymphocytes % 2.0 Monocytes % 4.5 Eosinophils % 0.0 Basophils % 0.1 Nucleated RBC % % 0 Absolute Neutrophils (1.2-6.7) 10^3/uL 12.07 H Absolute Lymphocytes (1.2-3.4) 10^3/uL 0.27 L Absolute Monocytes (0.1-0.8) 10^3/uL 0.60 Absolute Eosinophils (0.0-0.7) 10^3/uL 0.00 Absolute Basophils (0.0-0.2) 10^3/uL 0.01 PT (9.3-11.0) sec INR (0.9-1.1) VBG pH (7.31-7.41) VBG pCO2 (41-51) mmHg VBG pO2 mmHg VBG HCO3 (23-28) mmol/L VBG Total CO2 (24-29) mmol/L VBG O2 Saturation % VBG Base Excess (-2-3) mmol/L VBG Lactate (0.6-1.4) mmol/L 2.3 H* Sodium (136-145) mmol/L 144 Potassium (3.5-5.1) mmol/L 4.2 Chloride (98-107) mmol/L 105 Carbon Dioxide (21.0-32.0) mmol/L 27.6 Anion Gap (3-11) mmol/L 11.4 H BUN (7-18) mg/dL 45 H Creatinine (0.70-1.30) mg/dL 1.15 Estimated GFR/1.73 m2 (mL/min/1.73m2) >= 60.00 Glucose (74-106) mg/dL 713 H* Calcium (8.5-10.1) mg/dL 10.7 H Magnesium (1.8-2.4) mg/dL 2.7 H Total Bilirubin (0.2-1.0) mg/dL 2.7 H AST (15-37) U/L 40 H ALT (16-63) U/L 532 H Alkaline Phosphatase (46-116) U/L 716 H Troponin I (<0.06) ng/mL < 0.05 NT-Pro-B Natriuret Pep (<300) pg/mL 300 Total Protein (6.4-8.2) g/dL 7.6 Albumin (3.4-5.0) g/dL 2.8 L Lipase (73-393) U/L Urine Color (Yellow) Urine Clarity (Clear) Urine pH (5-8) Ur Specific [place] (1.005-1.025) Urine Protein (Negative) mg/dL Urine Ketones (Negative) mg/dL Urine Blood (Negative) Urine Nitrite (Negative) Urine Bilirubin (Negative) Urine Urobilinogen (Up TO 0.2) EU/dL Ur Leukocyte Esterase (Negative) Urine Glucose (Negative) mg/dL Range/Units 06/17/20 06/17/20 06/17/20 09:20 09:20 09:45 WBC (4.4-10.8) 10^3/uL RBC (4.36-5.78) 10^6/uL Hgb (13.5-17.5) g/dL Hct (40.0-50.0) % MCV (80-95) fL MCH (27.0-33.0) pg MCHC (32.0-36.0) % RDW (11.8-14.1) % Plt Count (130-400) 10^3/uL MPV (8.0-11.0) fL Immature Gran % Neutrophils % Lymphocytes % Monocytes % Eosinophils % Basophils % Nucleated RBC % % Absolute Neutrophils (1.2-6.7) 10^3/uL Absolute Lymphocytes (1.2-3.4) 10^3/uL Absolute Monocytes (0.1-0.8) 10^3/uL Absolute Eosinophils (0.0-0.7) 10^3/uL Absolute Basophils (0.0-0.2) 10^3/uL PT (9.3-11.0) sec 10.5 INR (0.9-1.1) 1.0 VBG pH (7.31-7.41) VBG pCO2 (41-51) mmHg VBG pO2 mmHg VBG HCO3 (23-28) mmol/L VBG Total CO2 (24-29) mmol/L VBG O2 Saturation % VBG Base Excess (-2-3) mmol/L VBG Lactate (0.6-1.4) mmol/L Sodium (136-145) mmol/L Potassium (3.5-5.1) mmol/L Chloride (98-107) mmol/L Carbon Dioxide (21.0-32.0) mmol/L Anion Gap (3-11) mmol/L BUN (7-18) mg/dL Creatinine (0.70-1.30) mg/dL Estimated GFR/1.73 m2 (mL/min/1.73m2) Glucose (74-106) mg/dL Calcium (8.5-10.1) mg/dL Magnesium (1.8-2.4) mg/dL Total Bilirubin (0.2-1.0) mg/dL AST (15-37) U/L ALT (16-63) U/L Alkaline Phosphatase (46-116) U/L Troponin I (<0.06) ng/mL NT-Pro-B Natriuret Pep (<300) pg/mL Total Protein (6.4-8.2) g/dL Albumin (3.4-5.0) g/dL Lipase (73-393) U/L 284 Urine Color (Yellow) Yellow Urine Clarity (Clear) Clear Urine pH (5-8) 6.0 Ur Specific [place] (1.005-1.025) 1.015 Urine Protein (Negative) mg/dL Negative Urine Ketones (Negative) mg/dL 40 H Urine Blood (Negative) Negative Urine Nitrite (Negative) Negative Urine Bilirubin (Negative) Negative Urine Urobilinogen (Up TO 0.2) EU/dL 0.2 Ur Leukocyte Esterase (Negative) Negative Urine Glucose (Negative) mg/dL 500 H Range/Units 06/17/20 06/17/20 06/17/20 11:53 11:53 12:20 WBC (4.4-10.8) 10^3/uL RBC (4.36-5.78) 10^6/uL Hgb (13.5-17.5) g/dL Hct (40.0-50.0) % MCV (80-95) fL MCH (27.0-33.0) pg MCHC (32.0-36.0) % RDW (11.8-14.1) % Plt Count (130-400) 10^3/uL MPV (8.0-11.0) fL Immature Gran % Neutrophils % Lymphocytes % Monocytes % Eosinophils % Basophils % Nucleated RBC % % Absolute Neutrophils (1.2-6.7) 10^3/uL Absolute Lymphocytes (1.2-3.4) 10^3/uL Absolute Monocytes (0.1-0.8) 10^3/uL Absolute Eosinophils (0.0-0.7) 10^3/uL Absolute Basophils (0.0-0.2) 10^3/uL PT (9.3-11.0) sec INR (0.9-1.1) VBG pH (7.31-7.41) 7.38 VBG pCO2 (41-51) mmHg 47 VBG pO2 mmHg 74 VBG HCO3 (23-28) mmol/L 28 VBG Total CO2 (24-29) mmol/L 25 VBG O2 Saturation % 94 VBG Base Excess (-2-3) mmol/L 2 VBG Lactate (0.6-1.4) mmol/L Sodium (136-145) mmol/L 145 Potassium (3.5-5.1) mmol/L 4.2 Chloride (98-107) mmol/L 109 H Carbon Dioxide (21.0-32.0) mmol/L 28.8 Anion Gap (3-11) mmol/L 7.2 BUN (7-18) mg/dL 42 H Creatinine (0.70-1.30) mg/dL 1.05 Estimated GFR/1.73 m2 (mL/min/1.73m2) >= 60.00 Glucose (74-106) mg/dL 580 H* Calcium (8.5-10.1) mg/dL 9.5 Magnesium (1.8-2.4) mg/dL Total Bilirubin (0.2-1.0) mg/dL AST (15-37) U/L ALT (16-63) U/L Alkaline Phosphatase (46-116) U/L Troponin I (<0.06) ng/mL < 0.05 NT-Pro-B Natriuret Pep (<300) pg/mL Total Protein (6.4-8.2) g/dL Albumin (3.4-5.0) g/dL Lipase (73-393) U/L Urine Color (Yellow) Urine Clarity (Clear) Urine pH (5-8) Ur Specific [place] (1.005-1.025) Urine Protein (Negative) mg/dL Urine Ketones (Negative) mg/dL Urine Blood (Negative) Urine Nitrite (Negative) Urine Bilirubin (Negative) Urine Urobilinogen (Up TO 0.2) EU/dL Ur Leukocyte Esterase (Negative) Urine Glucose (Negative) mg/dL Range/Units 06/17/20 13:08 WBC (4.4-10.8) 10^3/uL RBC (4.36-5.78) 10^6/uL Hgb (13.5-17.5) g/dL Hct (40.0-50.0) % MCV (80-95) fL MCH (27.0-33.0) pg MCHC (32.0-36.0) % RDW (11.8-14.1) % Plt Count (130-400) 10^3/uL MPV (8.0-11.0) fL Immature Gran % Neutrophils % Lymphocytes % Monocytes % Eosinophils % Basophils % Nucleated RBC % % Absolute Neutrophils (1.2-6.7) 10^3/uL Absolute Lymphocytes (1.2-3.4) 10^3/uL Absolute Monocytes (0.1-0.8) 10^3/uL Absolute Eosinophils (0.0-0.7) 10^3/uL Absolute Basophils (0.0-0.2) 10^3/uL PT (9.3-11.0) sec INR (0.9-1.1) VBG pH (7.31-7.41) VBG pCO2 (41-51) mmHg VBG pO2 mmHg VBG HCO3 (23-28) mmol/L VBG Total CO2 (24-29) mmol/L VBG O2 Saturation % VBG Base Excess (-2-3) mmol/L VBG Lactate (0.6-1.4) mmol/L Sodium (136-145) mmol/L Potassium (3.5-5.1) mmol/L Chloride (98-107) mmol/L Carbon Dioxide (21.0-32.0) mmol/L Anion Gap (3-11) mmol/L BUN (7-18) mg/dL Creatinine (0.70-1.30) mg/dL Estimated GFR/1.73 m2 (mL/min/1.73m2) Glucose (74-106) mg/dL Calcium (8.5-10.1) mg/dL Magnesium (1.8-2.4) mg/dL Total Bilirubin (0.2-1.0) mg/dL AST (15-37) U/L ALT (16-63) U/L Alkaline Phosphatase (46-116) U/L Troponin I (<0.06) ng/mL NT-Pro-B Natriuret Pep (<300) pg/mL Total Protein (6.4-8.2) g/dL Albumin (3.4-5.0) g/dL Lipase (73-393) U/L Cancelled Urine Color (Yellow) Urine Clarity (Clear) Urine pH (5-8) Ur Specific [place] (1.005-1.025) Urine Protein (Negative) mg/dL Urine Ketones (Negative) mg/dL Urine Blood (Negative) Urine Nitrite (Negative) Urine Bilirubin (Negative) Urine Urobilinogen (Up TO 0.2) EU/dL Ur Leukocyte Esterase (Negative) Urine Glucose (Negative) mg/dL ECG Data Attestation: I personally reviewed and interpreted this ECG (s) as follows: Interpretation: EKG shows sinus tachycardia at 117, occasional PAC, nonspecific ST changes, no STEMI, nondiagnostic EKG HPI General Mode of arrival: wheelchair . Date/Time Provider Initiated Documentation: 06/17/20 09:00 . Limitations to Documentation: no limitations . Information obtained by: patient, RN notes reviewed and old records reviewed . HPI Narrative: Jason Laird is a 80-year-old man with a history of gnj-lncprbk-fkukknani diabetes, colon cancer in the past, recently diagnosed pancreatic mass with biliary stent placed 06/18 at [facility] presenting to the emergency department with fatigue, general malaise. Pt reports that since having stent placed he has felt generally unwell, very tired, nauseated, minimal appetite. He reports upper abdominal pain unchanged since having stent placed, no other pain. He denies fever, SOB, cough, numbness, focal weakness, rash, diarrhea. He reports no change in symptoms since onset 06/18. Related Data Home Medications Medication Instructions Recorded Confirmed prednisone 12 mg PO DAILY AM 06/07/20 06/17/20 hydrocodone 5 mg-acetaminophen 325 1 tab PO Q6H PRN #30 tab MDD 4 06/10/20 06/17/20 mg tablet lorazepam 1 mg tablet 1 mg PO Q4H PRN PRN #6 tab MDD 06/20/20 [facility] morphine concentrate 100 mg/5 mL 5 - 20 mg PO Q1H PRN PRN #30 ml 06/20/20 (20 mg/mL) oral solution [facility] bisacodyl 5 mg PO DAILY PRN PRN #20 tab 06/21/20 docusate sodium [Colace] 100 mg PO BID #20 cap 06/21/20 hyoscyamine sulfate [Anaspaz] 0.125 mg SUBLINGUAL Q4H PRN PRN 06/21/20 #10 tab lorazepam 1 mg PO Q1H PRN PRN #20 tab 06/21/20 morphine 10 mg PO Q4H PRN PRN #5 ml 06/21/20 sennosides [Senokot] 1 tab PO BID #10 tab 06/21/20 fentanyl 25 mcg/hr transdermal 25 mcg TRANSDERMAL Q72H #5 ea MDD 06/25/20 [facility] Previous Rx's Medication Instructions Recorded hydrocodone 5 mg-acetaminophen 325 1 tab PO Q6H PRN #30 tab MDD 4 06/10/20 mg tablet lorazepam 1 mg tablet 1 mg PO Q4H PRN PRN #6 tab MDD 06/20/20 [facility] morphine concentrate 100 mg/5 mL 5 - 20 mg PO Q1H PRN PRN #30 ml 06/20/20 (20 mg/mL) oral solution [facility] bisacodyl 5 mg PO DAILY PRN PRN #20 tab 06/21/20 docusate sodium [Colace] 100 mg PO BID #20 cap 06/21/20 hyoscyamine sulfate [Anaspaz] 0.125 mg SUBLINGUAL Q4H PRN PRN 06/21/20 #10 tab lorazepam 1 mg PO Q1H PRN PRN #20 tab 06/21/20 morphine 10 mg PO Q4H PRN PRN #5 ml 06/21/20 sennosides [Senokot] 1 tab PO BID #10 tab 06/21/20 fentanyl 25 mcg/hr transdermal 25 mcg TRANSDERMAL Q72H #5 ea MDD 06/25/20 patch [facility] Allergies Allergy/AdvReac Type Severity Reaction Status Date / Time No Known Allergies Allergy Unverified 06/10/20 09:53 General Stated Complaint: GenMedical NIKITA: 3 Review of Systems Narrative: Constitutional: denies fevers, reports fatigue, generalized weakness Eyes: denies eye pain ENT: denies ear pain, dental pain, sore throat Cardiovascular: denies chest pain Respiratory: denies SOB, cough GI: denies vomiting, diarrhea, reports abdominal pain, nausea : denies flank pain MSK: denies back pain, neck pain, arthralgias, myalgias Skin: denies rash Neuro: denies headaches, numbness, focal weakness PFSH Medical History BPH (benign prostatic hyperplasia) BRBPR (bright red blood per rectum) Chronic use of steroids DM (diabetes mellitus) Mass of pancreas Polyarthralgia Primary malignant neoplasm of colon Systolic murmur Surgical History 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 neoplasm-cecum S/P ERCP 06/14/2020 at [facility] [place] [facility] [place] [facility], ERCP with billiary stent insertion Family History Mother , 96 Dementia Father , 69 Cancer Sister Personal history of malignant neoplasm colon Colon cancer Sister No problems noted. Sister No problems noted. Brother Heart disease pacemaker Maternal Grandfather No problems noted. Paternal Grandfather No problems noted. Maternal Grandmother No problems noted. Paternal Grandmother No problems noted. Daughter Essential hypertension Son No problems noted. Son No problems noted. Social History Smoking/Tobacco Use Status: Former Tobacco Use Quit Date: 08/16/1964 Tobacco: How many years used: 6 Smoking risk assessment performed?: Yes Alcohol Intake: current Alcohol Intake frequency: 0-2 drinks per day Alcohol type: beer Substance use type: does not use Caregiver/Support person: No Household members: spouse Communication Needs: Hard of Hearing Do you need help understanding health information?: Often Pets and animals: No Sexually active: No Do you think of yourself as: straight/heterosexual Current gender identity: male What is your relationship status?: How often do you talk on the phone with friends or family?: twice per week How often do you get together with friends or relatives?: decline to answer How often do you attend episcopalian or bahai services?: decline to answer Do you belong to any clubs or organized social groups?: no Panel score (0-1 are the most socially isolated patients): 1 What type of physical activity do you participate in: walking Duration: 30-45 minutes/day Frequency: 5-6 times per week Neda/Restorationism: Episcopalian Special neda needs: No Seatbelt use: always Drive intox or ride w/intox school bus driver/teacher assistant: No Do you feel safe at home: Yes Do you feel safe in your relationship?: Yes Exam Narrative Exam Narrative: Constitutional: ill-appearing, pleasant, conversing normally HENT: head atraumatic/normocephalic/normal inspection, mucous membranes moist Eyes: conjunctiva normal, sclera normal, pupils 3mm b/l Neck: no stridor, normal ROM, trachea midline Chest: normal inspection Resp: normal work of breathing, LCTAB Cardio: normal rate, normal rhythm, no murmur appreciated GI: abdomen soft, generalized abd TTP, no rebound, no guarding, non-distended Back: normal inspection, no rash Skin: warm, dry, normal color, no rash Neuro: alert, not altered, grossly non-focal, normal tone Ext: moving all extremities equally Psych: normal mood, normal affect, normal behavior Course Vital Signs Vital signs: Vital Signs Temperature 36.5 C 06/17/20 09:04 Pulse 117 H 06/17/20 09:04 Respiratory Rate 18 06/17/20 09:04 Blood Pressure 123/86 06/17/20 09:04 Pulse Oximetry 98 06/17/20 09:04 Temperature 36.5 C 06/17/20 09:04 Temperature Source Temporal Artery Scan 06/17/20 09:04 Pulse 117 H 06/17/20 09:04 Respiratory Rate 18 06/17/20 09:04 Blood Pressure 123/86 06/17/20 09:04 Pulse Oximetry 98 06/17/20 09:04 Oxygen Delivery Method Room Air 06/17/20 09:04 Oxygen Flow Rate 0 06/17/20 09:04 Lab/Test Results Lab/Test Results: 06/17/20 09:08 Blood Blood Culture - Pending 06/17/20 09:08 Blood Blood Culture - Pending
[2020-06-17] MEDS: Normal Saline 1,000 ML 1000 ML IV (09:30)
[2020-06-17 09:37] LABS: Lactate 2.3 mmol/L (0.6-1.4)
[2020-06-17 09:38] LABS: Abs Immature Grans 0.32 10^3/uL (0.0-0.06); Absolute Basophil Count 0.01 10^3/uL (0.0-0.2); Absolute Lymphocyte Count 0.27 10^3/uL (1.2-3.4); Basophils % 0.1; HGB 13.5 g/dL (13.5-17.5); Immature Grans % 2.4; MCH 29.5 pg (27.0-33.0); MCHC 30.7 % (32.0-36.0); MCV 96.1 fL (80-95); MPV 11.5 fL (8.0-11.0); Monocytes % 4.5; Nucleated RBC 0 %; Platelet Count 289 10^3/uL (130-400); RBC 4.58 10^6/uL (4.36-5.78); RDW 15.6 % (11.8-14.1); RDW-SD 55.2 fL; WBC 13.26 10^3/uL (4.4-10.8)
[2020-06-17 09:45] LABS: Absolute Neutrophil Count 12.07 10^3/uL (1.2-6.7)
[2020-06-17 09:46] LABS: Bilirubin Negative (Negative); Blood Negative (Negative); Clarity Clear (Clear); Glucose 500 mg/dL (Negative); Ketones 40 mg/dL (Negative); Leukocyte Esterase Negative (Negative); Nitrite Negative (Negative); Specific Gravity 1.015 (1.005-1.025); Urobilinogen 0.2 EU/dL (Up TO 0.2)
[2020-06-17 09:52] LABS: Prothrombin Time 10.5 sec (9.3-11.0)
[2020-06-17 10:01] LABS: ALT 532 U/L (16-63); AST 40 U/L (15-37); Albumin 2.8 g/dL (3.4-5.0); Alkaline Phosphatase 716 U/L (46-116); Anion Gap 11.4 mmol/L (3-11); BUN 45 mg/dL (7-18); Bilirubin, Total 2.7 mg/dL (0.2-1.0); CO2 27.6 mmol/L (21.0-32.0); CREATININE 1.15 mg/dL (0.70-1.30); Calcium 10.7 mg/dL (8.5-10.1); Chloride 105 mmol/L (98-107); Magnesium 2.7 mg/dL (1.8-2.4); NT-proBNP 300 pg/mL (<300); Potassium 4.2 mmol/L (3.5-5.1); Sodium 144 mmol/L (136-145); Total Protein 7.6 g/dL (6.4-8.2)
[2020-06-17 10:04] LABS: Glucose 713 mg/dL (74-106); Troponin I < 0.05 ng/mL (<0.06)
[2020-06-17] MEDS: Omnipaque 350 MG/ML 100 ML BTL IJ (10:48)
[2020-06-17] MEDS: Normal Saline - Diluent 50 ML VIAL IV (10:50)
--- NOTE | 2020-06-17 10:50 | DI.CT_ITS ---
EXAM: CT ABDOMEN PELVIS W CLINICAL HISTORY: abd pain, recent biliary stent TECHNIQUE: Imaging Protocol: Axial computed tomography images with coronal and sagittal reformatted images were created and reviewed CONTRAST MATERIAL: Intravenous: Omnipaque 350 Contrast volume:100 mL Oral: No COMPARISON: CT CT ABDOMEN PELVIS W from 06/07/2020 FINDINGS: ABDOMEN: Lung Bases: Dependent atelectasis. Liver: Normal density. The hypodensity in the posterior segment of the right lobe of the liver is unc hanged. A small cyst is seen in the dome of the right lobe of the liver. Portal, Superior Mesenteric, and Splenic Veins: Please see the pancreatic section. Gallbladder and Biliary Tract: No radiodense calculus or dilation. There has been interval placement of a biliary stent. Pneumobilia is seen in the liver. Pancreas: There is again seen a 10 cm retroperitoneal mass which appears to arise from the pancreas. It encases portions of the celiac axis, superior mesenteric artery and vein and portal vein. There is displacement and possible involvement of the duodenum. Significant abdominal and retroperitoneal adenopathy is again noted. Spleen: Normal. Adrenals: No masses seen. Kidneys: Normal size, contour and axis. No radiodense stones or obstructive uropathy. No masses seen. There is unchanged dilatation of the proximal right ureter which may be secondary to obstruction by the retroperitoneal process. Abdominal Aorta: Abdominal portion non-dilated. Atherosclerosis. Bowel: Stomach is distended. There is mild thickening of the wall of the distal stomach and proximal duodenum. This may be secondary to the adjacent neoplasm. A secondary infectious or inflammatory p rocess cannot be excluded. There is also mild thickening of loops of small bowel in the lower abdome n. No evidence of acute appendicitis. Colonic diverticulosis without evidence of acute diverticulit is. Partial right colectomy. Peritoneal Cavity: There is again seen mesenteric edema and soft tissue thickening likely secondary t o the retroperitoneal mass. Lymph Nodes: Extensive abdominal and retroperitoneal adenopathy. Bones: Stable lucencies are seen in the bones in the pelvis. Degenerative changes are seen in the sp ine. Soft Tissues: Unremarkable. PELVIS: Bladder: Symmetric distention, no gross wall thickening. Reproductive Organs: Enlarged prostate gland. Lymph Nodes: Within normal limits. Bones: Please see above. IMPRESSION: 1. Interval placement of a biliary stent. 2. 10 cm retroperitoneal mass which encases retroperitoneal vascular structures with possible involve ment of the stomach and duodenum. Extensive abdominal and retroperitoneal adenopathy. Probable exte nsion of disease into the mesentery. 3. Mild thickening of the wall of the distal stomach, duodenum and small bowel loops in the abdomen. While an infectious or inflammatory process should be considered neoplastic involvement cannot be ex cluded. 4. Stable lucencies in the bones of the pelvis. 5. Stable hepatic lesion. 6. Findings were discussed with the emergency department on the date of the examination. RADIATION DOSE DELIVERED: 845.61mGy.cm Total DLP DATA REPOSITORY: All CT scans at this facility are submitted to the National Radiology Data Registry (NRDR) Dose Index Registry (DIR) with the [employer] (ACR). RADIATION OPTIMIZATION: All CT scans at this facility use at least one of these dose optimization te chniques: automated exposure control; mA and/or kV adjustment per patient size (includes targeted exa ms where dose is matched to clinical indication); or iterative reconstruction.
[2020-06-17] MEDS: Normal Saline 500 ML IV (11:40)
[2020-06-17 11:57] LABS: BE (Venous) 2 mmol/L (-2-3); HCO3 (Venous) 28 mmol/L (23-28); O2 Sat (Venous) 94 %; TCO2 (Venous) 25 mmol/L (24-29); pCO2 (Venous) 47 mmHg (41-51); pH (Venous) 7.38 (7.31-7.41); pO2 (Venous) 74 mmHg
[2020-06-17 12:10] LABS: Anion Gap 7.2 mmol/L (3-11); BUN 42 mg/dL (7-18); CO2 28.8 mmol/L (21.0-32.0); CREATININE 1.05 mg/dL (0.70-1.30); Calcium 9.5 mg/dL (8.5-10.1); Chloride 109 mmol/L (98-107); Potassium 4.2 mmol/L (3.5-5.1); Sodium 145 mmol/L (136-145)
[2020-06-17 12:11] LABS: Glucose 580 mg/dL (74-106)
--- NOTE | 2020-06-17 12:15 | RT.EKG_ITS ---
APPROVED REPORT Exam: Resting ECG Patient Location: E HR:104 bpm ECG Measurements Heart Rate 104 AXIS [place] 142 P 53 QRSd 82 QRS -15 QT 368 T 189 QTc 483 Conclusion Sinus tachycardia...rate> 99 Probable left atrial enlargement...P >50mS, <-0.10mV V1
[2020-06-17 12:50] LABS: Troponin I < 0.05 ng/mL (<0.06)
[2020-06-17] MEDS: PIPERACILLIN/TAZO 3.375 GM in Normal Saline 50 ML IVPB ×2 (13:18→18:36)
[2020-06-17] MEDS: Ondansetron 4 MG/2 ML VIAL IVP (13:19)
[2020-06-17] MEDS: Normal Saline 250 ML IV (13:24)
[2020-06-17 13:34] LABS: Lipase 284 U/L (73-393)
[2020-06-17] MEDS: Insulin REGULAR-Human 100 UNITS/ML UNIT IV (14:12)
[2020-06-17 16:36] LABS: Anion Gap 6.1 mmol/L (3-11); BUN 39 mg/dL (7-18); CO2 29.9 mmol/L (21.0-32.0); CREATININE 1.02 mg/dL (0.70-1.30); Calcium 9.5 mg/dL (8.5-10.1); Chloride 112 mmol/L (98-107); Glucose 469 mg/dL (74-106); Potassium 4.3 mmol/L (3.5-5.1); Sodium 148 mmol/L (136-145)
--- NOTE | 2020-06-17 16:38 | HPE_ITS ---
Date of service: 06/17/20 Time of Service: 16:38 Assessment and Plan Assessment and plan (1) Sepsis: Status: Acute Assessment and plan: Due to suspected ascending cholangitis post ERCP/biliary stent insertion. Initiated on zosyn, IVF. Will monitor blood cultures with a very low threshold to transfer to [facility]. Consult general surgery. (2) Ascending cholangitis: Status: Acute Assessment and plan: As above (3) Toxic metabolic encephalopathy: Status: Acute Assessment and plan: Likely due to above; as above (4) Mass of pancreas: Status: Acute Assessment and plan: Bx results are not yet known, however malignancy is highly suspected. Consult general surgery and palliative care. (5) Hyperglycemia: Status: Acute Assessment and plan: In setting of dehydration, recent intervention on the pancreas, steroid use, suspected acute infection. Start on corrective insulin, continue IVF, hold metformin. Will write for 5 units of lantus tonight. (6) Chronic use of steroids: Status: Chronic Assessment and plan: NO evidence of adrenal insufficiency at this time. Continue at home dose. (7) Dehydration: Status: Acute Assessment and plan: Aggressive IVF (8) DVT prophylaxis: Status: Acute Assessment and plan: TEDs/SCDS. Patient has a mention of BRBPR in his [facility] record - will hold off of chemical DVT ppx for now (9) Discharge planning issues: Status: Acute Assessment and plan: Full code at this time. Consult palliative care. Low threshold for transfer to [facility]. History of Present Illness History of Present Illness Chief Complaint: Nausea/vomiting Narrative: Mr Laird is a 80 year old male with PMHx of recently diagnosed pancreatic mass, s/p ERCP at [facility] on 06/14/2020 with biliary stent insertion, (biopsy results are not yet known), as well as h/o colon cancer in the past, in remission, lower GI bleeding, NIDDM2, who had presented to [facility] ED today c/o confusion, abdominal pain, and persistent n/v since procedure. His Glucose was 713 by chemistry. There was no evidence of DKA. He was treated with IVF and received 5 units of IV regular insulin. His lipase was normal. [facility] GI was consulted about the possibility of patient having ascending cholangitis. The patient was recommended to be initated on empiric zosyn after having blood cultures, but to be kept at [facility]. I have discussed the case with the patient and his daughter: should the patient's blood cultures come back positive or his LFTs get worse, we will pursue a transfer to [facility]. Review of Systems Narrative: additionally, the patient endorses having a dry mouth and a dry cough. 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 neoplasm-cecum S/P ERCP 06/14/2020 at [facility] - EUS, ERCP with billiary stent insertion Family History Mother , 96 Dementia Father , 69 Cancer Sister Personal history of malignant neoplasm colon Colon cancer Sister No problems noted. Sister No problems noted. Brother Heart disease pacemaker Maternal Grandfather No problems noted. Paternal Grandfather No problems noted. Maternal Grandmother No problems noted. Paternal Grandmother No problems noted. Daughter Essential hypertension Son No problems noted. Son No problems noted. Social History Smoking/Tobacco Use Status: Former Tobacco Use Quit Date: 08/16/1964 Tobacco: How many years used: 6 Smoking risk assessment performed?: Yes Alcohol Intake: current Alcohol Intake frequency: 0-2 drinks per day Alcohol type: beer Substance use type: does not use Caregiver/Support person: No Household members: spouse Communication Needs: Hard of Hearing Do you need help understanding health information?: Often Pets and animals: No Sexually active: No Do you think of yourself as: straight/heterosexual Current gender identity: male What is your relationship status?: How often do you talk on the phone with friends or family?: twice per week How often do you get together with friends or relatives?: decline to answer How often do you attend episcopalian or islam services?: decline to answer Do you belong to any clubs or organized social groups?: no Panel score (0-1 are the most socially isolated patients): 1 What type of physical activity do you participate in: walking Duration: 30-45 minutes/day Frequency: 5-6 times per week Neda/Jehovah'S Witness: Latter Day Special neda needs: No Seatbelt use: always Drive intox or ride w/intox non emergency services ambulance driver: No Do you feel safe at home: Yes Do you feel safe in your relationship?: Yes Meds Home Medications and Allergies Home Medications Medication Instructions Recorded Confirmed Type [place] Advantage 1 ea PO BID 05/24/17 06/17/20 History atorvastatin 10 mg tablet 10 mg PO HS #90 tab-cap 08/29/19 06/17/20 Rx metformin 500 mg tablet 500 mg PO qPM #90 tab-cap 08/29/19 06/17/20 Rx tamsulosin 0.4 mg capsule 0.4 mg PO HS #90 cap 08/29/19 06/17/20 Rx prednisone 12 mg PO DAILY AM 06/07/20 06/17/20 History hydrocodone 5 mg-acetaminophen 325 1 tab PO Q6H PRN #30 tab MDD 4 06/10/20 06/17/20 Rx mg tablet Allergies Allergy/AdvReac Type Severity Reaction Status Date / Time No Known Allergies Allergy Unverified 06/10/20 09:53 Exam Narrative Exam Narrative: General: Elderly male who does not look well, A&OX3, but has difficulty focusing on answering my questions; looks visibly dehydrated Neurological: A&Ox3, NINILCHIK, appears to have difficulty focusing on the interview Psychiatric: Difficult to fully examine given mental status Skin: Dehydrated HEENT: Atraumatic, normocephalic, flushed, EOMI, very dry MM, clear oropharynx, no submandibular/cervical lymphadenopathy, no goiter or JVD Cardiovascular: RRR, +TANNER (per patient, chronic) Lungs: CTAB (diminished) Gastrointestinal: Soft, tender in epigastrium, nondistended Genitourinary: deferred Extremities: no e/c/c BLE's Results Imaging Additional studies: CXR: No acute pulmonary findings. CT abdomen/pelvis: 1. Interval placement of a biliary stent. 2. 10 cm retroperitoneal mass which encases retroperitoneal vascular structures with possible involvement of the stomach and duodenum. Extensive abdominal and retroperitoneal adenopathy. Probable extension of disease into the mesentery. 3. Mild thickening of the wall of the distal stomach, duodenum and small bowel loops in the abdomen. While an infectious or inflammatory process should be considered neoplastic involvement cannot be excluded. 4. Stable lucencies in the bones of the pelvis. 5. Stable hepatic lesion. Labs Result diagrams: 06/17/20 09:20 06/17/20 16:10 Labs: Laboratory Results - last 24 hr 06/17/20 06/17/20 06/17/20 09:20 09:20 09:20 WBC 13.26 H RBC 4.58 Hgb 13.5 Hct 44.0 MCV 96.1 H MCH 29.5 MCHC 30.7 L RDW 15.6 H Plt Count 289 MPV 11.5 H Immature Gran % 2.4 Neutrophils % 91.0 Lymphocytes % 2.0 Monocytes % 4.5 Eosinophils % 0.0 Basophils % 0.1 Nucleated RBC % 0 Absolute Neutrophils 12.07 H Absolute Lymphocytes 0.27 L Absolute Monocytes 0.60 Absolute Eosinophils 0.00 Absolute Basophils 0.01 PT INR VBG pH VBG pCO2 VBG pO2 VBG HCO3 VBG Total CO2 VBG O2 Saturation VBG Base Excess VBG Lactate 2.3 H* Sodium 144 Potassium 4.2 Chloride 105 Carbon Dioxide 27.6 Anion Gap 11.4 H BUN 45 H Creatinine 1.15 Estimated GFR/1.73 m2 >= 60.00 Glucose 713 H* Calcium 10.7 H Magnesium 2.7 H Total Bilirubin 2.7 H AST 40 H ALT 532 H Alkaline Phosphatase 716 H Troponin I < 0.05 NT-Pro-B Natriuret Pep 300 Total Protein 7.6 Albumin 2.8 L Lipase Urine Color Urine Clarity Urine pH Ur Specific [place] Urine Protein Urine Ketones Urine Blood Urine Nitrite Urine Bilirubin Urine Urobilinogen Ur Leukocyte Esterase Urine Glucose 06/17/20 06/17/20 06/17/20 09:20 09:20 09:45 WBC RBC Hgb Hct MCV MCH MCHC RDW Plt Count MPV Immature Gran % Neutrophils % Lymphocytes % Monocytes % Eosinophils % Basophils % Nucleated RBC % Absolute Neutrophils Absolute Lymphocytes Absolute Monocytes Absolute Eosinophils Absolute Basophils PT 10.5 INR 1.0 VBG pH VBG pCO2 VBG pO2 VBG HCO3 VBG Total CO2 VBG O2 Saturation VBG Base Excess VBG Lactate Sodium Potassium Chloride Carbon Dioxide Anion Gap BUN Creatinine Estimated GFR/1.73 m2 Glucose Calcium Magnesium Total Bilirubin AST ALT Alkaline Phosphatase Troponin I NT-Pro-B Natriuret Pep Total Protein Albumin Lipase 284 Urine Color Yellow Urine Clarity Clear Urine pH 6.0 Ur Specific [place] 1.015 Urine Protein Negative Urine Ketones 40 H Urine Blood Negative Urine Nitrite Negative Urine Bilirubin Negative Urine Urobilinogen 0.2 Ur Leukocyte Esterase Negative Urine Glucose 500 H 06/17/20 06/17/20 06/17/20 11:53 11:53 12:20 WBC RBC Hgb Hct MCV MCH MCHC RDW Plt Count MPV Immature Gran % Neutrophils % Lymphocytes % Monocytes % Eosinophils % Basophils % Nucleated RBC % Absolute Neutrophils Absolute Lymphocytes Absolute Monocytes Absolute Eosinophils Absolute Basophils PT INR VBG pH 7.38 VBG pCO2 47 VBG pO2 74 VBG HCO3 28 VBG Total CO2 25 VBG O2 Saturation 94 VBG Base Excess 2 VBG Lactate Sodium 145 Potassium 4.2 Chloride 109 H Carbon Dioxide 28.8 Anion Gap 7.2 BUN 42 H Creatinine 1.05 Estimated GFR/1.73 m2 >= 60.00 Glucose 580 H* Calcium 9.5 Magnesium Total Bilirubin AST ALT Alkaline Phosphatase Troponin I < 0.05 NT-Pro-B Natriuret Pep Total Protein Albumin Lipase Urine Color Urine Clarity Urine pH Ur Specific [place] Urine Protein Urine Ketones Urine Blood Urine Nitrite Urine Bilirubin Urine Urobilinogen Ur Leukocyte Esterase Urine Glucose 06/17/20 13:08 WBC RBC Hgb Hct MCV MCH MCHC RDW Plt Count MPV Immature Gran % Neutrophils % Lymphocytes % Monocytes % Eosinophils % Basophils % Nucleated RBC % Absolute Neutrophils Absolute Lymphocytes Absolute Monocytes Absolute Eosinophils Absolute Basophils PT INR VBG pH VBG pCO2 VBG pO2 VBG HCO3 VBG Total CO2 VBG O2 Saturation VBG Base Excess VBG Lactate Sodium Potassium Chloride Carbon Dioxide Anion Gap BUN Creatinine Estimated GFR/1.73 m2 Glucose Calcium Magnesium Total Bilirubin AST ALT Alkaline Phosphatase Troponin I NT-Pro-B Natriuret Pep Total Protein Albumin Lipase Cancelled Urine Color Urine Clarity Urine pH Ur Specific [place] Urine Protein Urine Ketones Urine Blood Urine Nitrite Urine Bilirubin Urine Urobilinogen Ur Leukocyte Esterase Urine Glucose Last Vital Signs Temp 36.8 C 06/17/20 16:28 Pulse 101 H 06/17/20 16:28 Resp 18 06/17/20 16:28 BP 122/74 06/17/20 16:28 Pulse Ox 98 06/17/20 16:28 COVID-19 Screening Have you,or household,traveled outside [place] in last 14 days?: No Had IN PERSON contact w/suspected or confirmed C-19 person: No
[2020-06-17] MEDS: Insulin Aspart 300 UNITS/3 ML PEN SC ×2 (17:54→22:27)
[2020-06-17] MEDS: Normal Saline 1,000 ML 125 ML IV (18:00)
[2020-06-17] MEDS: Pantoprazole 40 MG VIAL IVP (19:59)
[2020-06-17] MEDS: Normal Saline Flush 10 ML SYR IVP (19:59)
--- NOTE | 2020-06-17 20:08 | W.SURGCON ---
Date of service: 06/18/20 Time of Service: 07:32 Assessment and Plan Assessment and plan (1) Mass of pancreas: Status: Acute Assessment and plan: His labs have fortunately improved today and he is afebrile with stable vitals. I think we can continue with present management but maintain a low threshold for transfer if there is a suspicion of developing cholangitis. Will follow up on biopsy results. Patient is not a surgical candidate, so decision making needs to include palliative chemo (when biopsies back) or hospice. Can consider advancing diet History of Present Illness Narrative: Patient with a known pancreatic mass presented to the ER yesterday evening with increased confusion, poor PO intake. He had an endoscopic US and ERCP on Wednesday at [facility] for a biliary stricture. Biopsies are pending. He has been requiring pain meds at home. This morning he reports a pain level of 3. He has been tolerating clear liquids without vomiting. Feels slightly hungry. Is also having some intermittent nausea. His history is fairly vague. 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 neoplasm-cecum S/P ERCP 06/14/2020 at [facility] - EUS, ERCP with billiary stent insertion Family History Mother , 96 Dementia Father , 69 Cancer Sister Personal history of malignant neoplasm colon Colon cancer Sister No problems noted. Sister No problems noted. Brother Heart disease pacemaker Maternal Grandfather No problems noted. Paternal Grandfather No problems noted. Maternal Grandmother No problems noted. Paternal Grandmother No problems noted. Daughter Essential hypertension Son No problems noted. Son No problems noted. Social History Smoking/Tobacco Use Status: Former Tobacco Use Quit Date: 08/16/1964 Tobacco: How many years used: 6 Smoking risk assessment performed?: Yes Alcohol Intake: current Alcohol Intake frequency: 0-2 drinks per day Alcohol type: beer Substance use type: does not use Caregiver/Support person: No Household members: spouse Communication Needs: Hard of Hearing Do you need help understanding health information?: Often Pets and animals: No Sexually active: No Do you think of yourself as: straight/heterosexual Current gender identity: male What is your relationship status?: How often do you talk on the phone with friends or family?: twice per week How often do you get together with friends or relatives?: decline to answer How often do you attend baptism or presybeterian services?: decline to answer Do you belong to any clubs or organized social groups?: no Panel score (0-1 are the most socially isolated patients): 1 What type of physical activity do you participate in: walking Duration: 30-45 minutes/day Frequency: 5-6 times per week Neda/Taoist: Mormon Special neda needs: No Seatbelt use: always Drive intox or ride w/intox race car driver: No Do you feel safe at home: Yes Do you feel safe in your relationship?: Yes Exam Narrative Exam Narrative: Awake but not completely normal mentation. Abdomen slightly distended. Tender throughout upper abdomen. Fullness present in RUQ. No peritonitis. Results Last Vital Signs Temp 98.4 F 06/17/20 19:20 Pulse 94 H 06/17/20 19:20 Resp 19 06/17/20 19:20 BP 118/72 06/17/20 19:20 Pulse Ox 98 06/17/20 19:20 Labs Result diagrams: 06/18/20 06:45 06/18/20 12:11 Labs: Laboratory Results - last 24 hr 06/17/20 06/17/20 06/17/20 09:20 09:20 09:20 WBC 13.26 H RBC 4.58 Hgb 13.5 Hct 44.0 MCV 96.1 H MCH 29.5 MCHC 30.7 L RDW 15.6 H Plt Count 289 MPV 11.5 H Immature Gran % 2.4 Neutrophils % 91.0 Lymphocytes % 2.0 Monocytes % 4.5 Eosinophils % 0.0 Basophils % 0.1 Nucleated RBC % 0 Absolute Neutrophils 12.07 H Absolute Lymphocytes 0.27 L Absolute Monocytes 0.60 Absolute Eosinophils 0.00 Absolute Basophils 0.01 PT INR VBG pH VBG pCO2 VBG pO2 VBG HCO3 VBG Total CO2 VBG O2 Saturation VBG Base Excess VBG Lactate 2.3 H* Sodium 144 Potassium 4.2 Chloride 105 Carbon Dioxide 27.6 Anion Gap 11.4 H BUN 45 H Creatinine 1.15 Estimated GFR/1.73 m2 >= 60.00 Glucose 713 H* Calcium 10.7 H Magnesium 2.7 H Total Bilirubin 2.7 H AST 40 H ALT 532 H Alkaline Phosphatase 716 H Troponin I < 0.05 NT-Pro-B Natriuret Pep 300 Total Protein 7.6 Albumin 2.8 L Lipase Urine Color Urine Clarity Urine pH Ur Specific [place] Urine Protein Urine Ketones Urine Blood Urine Nitrite Urine Bilirubin Urine Urobilinogen Ur Leukocyte Esterase Urine Glucose 06/17/20 06/17/20 06/17/20 09:20 09:20 09:45 WBC RBC Hgb Hct MCV MCH MCHC RDW Plt Count MPV Immature Gran % Neutrophils % Lymphocytes % Monocytes % Eosinophils % Basophils % Nucleated RBC % Absolute Neutrophils Absolute Lymphocytes Absolute Monocytes Absolute Eosinophils Absolute Basophils PT 10.5 INR 1.0 VBG pH VBG pCO2 VBG pO2 VBG HCO3 VBG Total CO2 VBG O2 Saturation VBG Base Excess VBG Lactate Sodium Potassium Chloride Carbon Dioxide Anion Gap BUN Creatinine Estimated GFR/1.73 m2 Glucose Calcium Magnesium Total Bilirubin AST ALT Alkaline Phosphatase Troponin I NT-Pro-B Natriuret Pep Total Protein Albumin Lipase 284 Urine Color Yellow Urine Clarity Clear Urine pH 6.0 Ur Specific [place] 1.015 Urine Protein Negative Urine Ketones 40 H Urine Blood Negative Urine Nitrite Negative Urine Bilirubin Negative Urine Urobilinogen 0.2 Ur Leukocyte Esterase Negative Urine Glucose 500 H 06/17/20 06/17/20 06/17/20 11:53 11:53 12:20 WBC RBC Hgb Hct MCV MCH MCHC RDW Plt Count MPV Immature Gran % Neutrophils % Lymphocytes % Monocytes % Eosinophils % Basophils % Nucleated RBC % Absolute Neutrophils Absolute Lymphocytes Absolute Monocytes Absolute Eosinophils Absolute Basophils PT INR VBG pH 7.38 VBG pCO2 47 VBG pO2 74 VBG HCO3 28 VBG Total CO2 25 VBG O2 Saturation 94 VBG Base Excess 2 VBG Lactate Sodium 145 Potassium 4.2 Chloride 109 H Carbon Dioxide 28.8 Anion Gap 7.2 BUN 42 H Creatinine 1.05 Estimated GFR/1.73 m2 >= 60.00 Glucose 580 H* Calcium 9.5 Magnesium Total Bilirubin AST ALT Alkaline Phosphatase Troponin I < 0.05 NT-Pro-B Natriuret Pep Total Protein Albumin Lipase Urine Color Urine Clarity Urine pH Ur Specific [place] Urine Protein Urine Ketones Urine Blood Urine Nitrite Urine Bilirubin Urine Urobilinogen Ur Leukocyte Esterase Urine Glucose 06/17/20 06/17/20 06/17/20 13:08 16:05 16:10 WBC RBC Hgb Hct MCV MCH MCHC RDW Plt Count MPV Immature Gran % Neutrophils % Lymphocytes % Monocytes % Eosinophils % Basophils % Nucleated RBC % Absolute Neutrophils Absolute Lymphocytes Absolute Monocytes Absolute Eosinophils Absolute Basophils PT INR VBG pH VBG pCO2 VBG pO2 VBG HCO3 VBG Total CO2 VBG O2 Saturation VBG Base Excess VBG Lactate Sodium Cancelled 148 H Potassium Cancelled 4.3 Chloride Cancelled 112 H Carbon Dioxide Cancelled 29.9 Anion Gap Cancelled 6.1 BUN Cancelled 39 H Creatinine Cancelled 1.02 Estimated GFR/1.73 m2 Cancelled >= 60.00 Glucose Cancelled 469 H D Calcium Cancelled 9.5 Magnesium Total Bilirubin AST ALT Alkaline Phosphatase Troponin I NT-Pro-B Natriuret Pep Total Protein Albumin Lipase Cancelled Urine Color Urine Clarity Urine pH Ur Specific [place] Urine Protein Urine Ketones Urine Blood Urine Nitrite Urine Bilirubin Urine Urobilinogen Ur Leukocyte Esterase Urine Glucose
[2020-06-17] MEDS: Atorvastatin 10 MG TAB PO (22:26)
[2020-06-17] MEDS: Tamsulosin 0.4 MG CAPCR PO (22:26)
[2020-06-17] MEDS: Insulin Glargine 300 UNITS/3 ML PEN SC (22:26)
[2020-06-18] VITALS (9 sets, daily range): BP systolic 108–134; BP diastolic 67–79; PULSE 69–94; RESP 17–19; TEMP 35.7–37.2; O2SAT 92–99
[2020-06-18] MEDS: PIPERACILLIN/TAZO 3.375 GM in Normal Saline 50 ML IVPB ×5 (00:06→23:36)
[2020-06-18] MEDS: Normal Saline 1,000 ML 125 ML IV (02:03)
[2020-06-18] MEDS: predniSONE 5 MG TAB 12.5 MG PO (05:48)
[2020-06-18] MEDS: Ondansetron 4 MG/2 ML VIAL IVP (06:41)
[2020-06-18] MEDS: MORPHine 2 MG/ML SYR IVP ×3 (06:41→22:08)
[2020-06-18 07:13] LABS: Abs Immature Grans 0.11 10^3/uL (0.0-0.06); Absolute Basophil Count 0.01 10^3/uL (0.0-0.2); Absolute Lymphocyte Count 0.28 10^3/uL (1.2-3.4); Absolute Monocyte Count 0.39 10^3/uL (0.1-0.8); Basophils % 0.1; HCT 37.7 % (40.0-50.0); HGB 11.4 g/dL (13.5-17.5); Immature Grans % 1.2; MCH 29.8 pg (27.0-33.0); MCHC 30.2 % (32.0-36.0); MCV 98.4 fL (80-95); MPV 11.4 fL (8.0-11.0); Monocytes % 4.2; Neutrophils % 91.5; Nucleated RBC 0 %; Platelet Count 206 10^3/uL (130-400); RBC 3.83 10^6/uL (4.36-5.78); RDW 14.9 % (11.8-14.1); RDW-SD 54.4 fL
[2020-06-18 07:17] LABS: Absolute Neutrophil Count 8.42 10^3/uL (1.2-6.7)
[2020-06-18 07:28] LABS: ALT 327 U/L (16-63); AST 37 U/L (15-37); Albumin 2.2 g/dL (3.4-5.0); Alkaline Phosphatase 484 U/L (46-116); Anion Gap 5.7 mmol/L (3-11); BUN 38 mg/dL (7-18); Bilirubin, Direct 1.53 mg/dL (0.00-0.20); Bilirubin, Total 2.1 mg/dL (0.2-1.0); CO2 30.3 mmol/L (21.0-32.0); CREATININE 1.04 mg/dL (0.70-1.30); Calcium 9.3 mg/dL (8.5-10.1); Chloride 116 mmol/L (98-107); Glucose 311 mg/dL (74-106); Magnesium 2.3 mg/dL (1.8-2.4); Potassium 3.5 mmol/L (3.5-5.1); Sodium 152 mmol/L (136-145)
[2020-06-18] MEDS: Insulin Aspart 300 UNITS/3 ML PEN SC ×4 (08:22→22:01)
--- NOTE | 2020-06-18 08:35 | PCNE_ITS ---
Date of service: 06/18/20 Time of Service: 07:35 History of Present Illness Narrative: Jason is a 80-year-old previously healthy man who became ill recently after 3 sleepless nights he came to the hospital. He was unable to tell staff his medications etc. his daughter was able to come in and at that time help to fill in some of the blanks. I had heard from the daughter previously that her father had a pancreatic mass and that he was not doing well and failing quickly. I am meeting with Jason this morning to discuss prognosis, choices, and CODE STATUS. It took us about 15 minutes to get his hearing aids in. Although I did not tell him my last name of Mary, when I said that my name was Dr. White and that I knew his daughter's remark was old year Dr. Hernandez. He knew that I was palliative care but did not really know what that was. He could not tell me what the doctors and [facility] have told him he had. He could not tell me any prognosis. He just says I do not feel well. He did state that he lost 15 to 20 pounds over the last 2 weeks and has been nauseated and vomiting. This morning he is feeling much much better. He really wants some food specifically KishorececileMonique Gomez has lived all of his life in [place]. 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 When he left there they gave him a rocking chair for snf. Since then he has been doing a lot of woodworking for himself and his family. He lives with his who he describes as my very jessika . He has 3 children and is proud of them all. Consults Consult date: 06/18/20 Requesting physician: Maura Castellanos Assessment and Plan Assessment and plan (1) Dehydration: Status: Acute (2) Hyperglycemia: Status: Acute (3) Toxic metabolic encephalopathy: Status: Acute (4) Ascending cholangitis: Status: Acute (5) Mass of pancreas: Status: Acute (6) Palliative care patient: Status: Acute Assessment and plan: I spoke with Jason for quite some time. It was obvious to me that he does not understand what is going on with him nor can he p rocessed this information. When I asked him if I could meet with his and daughter he was very happy and thought that was a good idea. I spoke with Yuli his daughter who agrees to meet with me at about 5:00. The hospital is on lockdown again. Hopefully we can meet in the Chapel if not we w ill meet outside in the snow. I will bring with me [place] [facility] [place] [facility] We can talk about what they know and the prognosis. I did specifically talk to Yuli about CODE STATUS. She wanted to immediately change him to a DNR/DNI based on conversations that they have had. I recommended that we wait until this afternoon when we gather with his , Yuli's mother. I have contacted care management to see if they can arrange for us to meet in the Chapel for end-of-life discussion. I will then go up and speak with Jason and have Yuli and Jason's on speaker phone. I also did speak with his primary care physician Dr. Tolliver Review of Systems Narrative: When I asked him how he feels he says better but his mouth is dry, he does not really know what he wants to eat but he is hungry. 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 neoplasm-cecum S/P [place] [facility] [place] [facility]CP with billiary stent insertion Family History Mother , 96 Dementia Father , 69 Cancer Sister Personal history of malignant neoplasm colon Colon cancer Sister No problems noted. Sister No problems noted. Brother Heart disease pacemaker Maternal Grandfather No problems noted. Paternal Grandfather No problems noted. Maternal Grandmother No problems noted. Paternal Grandmother No problems noted. Daughter Essential hypertension Son No problems noted. Son No problems noted. Social History Smoking/Tobacco Use Status: Former Tobacco Use Quit Date: 08/16/1964 Tobacco: How many years used: 6 Smoking risk assessment performed?: Yes Alcohol Intake: current Alcohol Intake frequency: 0-2 drinks per day Alcohol type: beer Substance use type: does not use Caregiver/Support person: No Household members: spouse Communication Needs: Hard of Hearing Do you need help understanding health information?: Often Pets and animals: No Sexually active: No Do you think of yourself as: straight/heterosexual Current gender identity: male What is your relationship status?: How often do you talk on the phone with friends or family?: twice per week How often do you get together with friends or relatives?: decline to answer How often do you attend denominational or rastafarian services?: decline to answer Do you belong to any clubs or organized social groups?: no Panel score (0-1 are the most socially isolated patients): 1 What type of physical activity do you participate in: walking Duration: 30-45 minutes/day Frequency: 5-6 times per week Neda/Presybeterian: Sabianism Special neda needs: No Seatbelt use: always Drive intox or ride w/intox route delivery service driver: No Do you feel safe at home: Yes Do you feel safe in your relationship?: Yes Exam Narrative Exam Narrative: Jason is lying in bed. He is very hard of hearing even after we put in his hearing aids. His mouth looks extremely dry. I offered him sips which he loved. He could not sit up in bed but preferred to lay down. His heart had normal rhythm, he did have a murmur. Little aeration in his lungs. He has some bowel sounds but it is very tender. He keeps repeating I am delirious I am delirious I am delirious 05/2020: bob(jeronimo) gordy CT:CT abdomen & pelvis w EXAM: CT ABDOMEN PELVIS W CLINICAL HISTORY: gi bleeding, hx of colon cancer w/ resection COMPARISON: CT ABD PELVIS WITH CONTRAST from 07/09/2010 FINDINGS: CT examination of the abdomen and pelvis was performed with a bolus infusion of 100 cc of Omnipaque 350. Images obtained through the lung bases show a 6 millimeter in diameter noncalcified left basilar nodule. There is mild gastric distention which is nonspecific. The duodenal wall is thickened. There is a roughly 10 cm in diameter retroperitoneal mass which appears to involve the head of the pancreas and perhaps the descending duodenum and which encases celiac trunk and SMA. There is associated mesenteric adenopathy. There is associated retroperitoneal adenopathy in para-aortic and paracaval nodes and retrocrural nodes, the largest bulky adenopathy is para- aortic and measures up to about 4 cm in diameter. Tail of the pancreas appears intact. Pancreatic duct nondilated. Gallbladder mildly distended, no gross common duct dilatation. Mildly dilated collecting system of the right kidney and proximal ureter, possible obstruction by retroperitoneal process of the proximal ureter. No distal ureteral abnormality. No left renal abnormality. Adrenals appear intact. No gross small bowel obstruction. Question mild small bowel wall thickening in the mid abdomen, nonspecific. No colonic obstruction. Prior right colectomy noted. Urinary bladder unremarkable in appearance. There is an indeterminate low-attenuation right hepatic lobe lesion measuring about 2.4 cm in diameter. This measured about 22 millimeters in diameter on prior CT of June 2010 and is unlikely to represent a metastatic lesion. An additional tiny sub diaphragmatic right hepatic lobe lesion is also seen probably representing cyst. No gross focal bony erosive or destructive lesion seen. Abdominal aorta is of normal diameter. There is marked mesenteric edema and/or direct infiltration by the large retroperitoneal mass. IMPRESSION: Large retroperitoneal mass with encasement of major vascular structures, marked mesenteric edema and/or infiltration, and involvement of adjacent organs i ncluding pancreas, duodenum and right ureter. The presumably neoplastic mass could be pancreatic in origin. Other etiologies not excluded. 6 millimeter in diameter left lower lobe intrapulmonary nodule, not present on prior CT of 2009, indeterminate and could represent metastatic disease. Additi onal evaluation with chest CT recommended. 06/17/2020: bob(s) gordy CT:CT abdomen & pelvis w EXAM: CT ABDOMEN PELVIS W CLINICAL HISTORY: abd pain, recent biliary stent TECHNIQUE: Imaging Protocol: Axial computed tomography images with coronal and sagittal reformatted images were created and reviewed CONTRAST MATERIAL: Intravenous: Omnipaque 350 Contrast volume:100 mL Oral: No COMPARISON: CT CT ABDOMEN PELVIS W from 06/07/2020 FINDINGS: ABDOMEN: Lung Bases: Dependent atelectasis. Liver: Normal density. The hypodensity in the posterior segment of the right lobe of the liver is unchanged. A small cyst is seen in the dome of the right lobe of the liver. Portal, Superior Mesenteric, and Splenic Veins: Please see the pancreatic section. Gallbladder and Biliary Tract: No radiodense calculus or dilation. There has been interval placement of a biliary stent. Pneumobilia is seen in the liver. Pancreas: There is again seen a 10 cm retroperitoneal mass which appears to delvis e from the pancreas. It encases portions of the celiac axis, superior mesenteric artery and vein and portal vein. There is displacement and possible involvement of the duodenum. Significant abdominal and retroperitoneal adenopathy is again noted. Spleen: Normal. Adrenals: No masses seen. Kidneys: Normal size, contour and axis. No radiodense stones or obstructive uropathy. No masses seen. There is unchanged dilatation of the proximal right ureter which may be secondary to obstruction by the retroperitoneal process. Abdominal Aorta: Abdominal portion non-dilated. Atherosclerosis. Bowel: Stomach is distended. There is mild thickening of the wall of the distal stomach and proximal duodenum. This may be secondary to the adjacent neoplasm. A secondary infectious or inflammatory process cannot be excluded. There is also mild thickening of loops of small bowel in the lower abdomen. No evidence of acute appendicitis. Colonic diverticulosis without evidence of acute diverticulitis. Partial right colectomy. Peritoneal Cavity: There is again seen mesenteric edema and soft tissue thick ening likely secondary to the retroperitoneal mass. Lymph Nodes: Extensive abdominal and retroperitoneal adenopathy. Bones: Stable lucencies are seen in the bones in the pelvis. Degenerative changes are seen in the spine. Soft Tissues: Unremarkable. PELVIS: Bladder: Symmetric distention, no gross wall thickening. Reproductive Organs: Enlarged prostate gland. Lymph Nodes: Within normal limits. Bones: Please see above. IMPRESSION: 1. Interval placement of a biliary stent. 2. 10 cm retroperitoneal mass which encases retroperitoneal vascular structures with possible involvement of the stomach and duodenum. Extensive abdominal and retroperitoneal adenopathy. Probable extension of disease into the mesentery. 3. Mild thickening of the wall of the distal stomach, duodenum and small bowel loops in the abdomen. While an infectious or inflammatory process should be considered neoplastic involvement cannot be excluded. 4. Stable lucencies in the bones of the pelvis. 5. Stable hepatic lesion. 6. Findings were discussed with the emergency department on the date of the examination. Results Last Vital Signs Temp 98.1 F 06/18/20 07:53 Pulse 89 06/18/20 07:53 Resp 18 06/18/20 07:53 BP 123/76 06/18/20 07:53 Pulse Ox 92 06/18/20 07:53 Labs Result diagrams: 06/18/20 06:45 06/18/20 06:45 Labs: Laboratory Results - last 24 hr 06/17/20 06/17/20 06/17/20 09:20 09:20 09:20 WBC 13.26 H RBC 4.58 Hgb 13.5 Hct 44.0 MCV 96.1 H MCH 29.5 MCHC 30.7 L RDW 15.6 H Plt Count 289 MPV 11.5 H Immature Gran % 2.4 Neutrophils % 91.0 Lymphocytes % 2.0 Monocytes % 4.5 Eosinophils % 0.0 Basophils % 0.1 Nucleated RBC % 0 Absolute Neutrophils 12.07 H Absolute Lymphocytes 0.27 L Absolute Monocytes 0.60 Absolute Eosinophils 0.00 Absolute Basophils 0.01 PT INR VBG pH VBG pCO2 VBG pO2 VBG HCO3 VBG Total CO2 VBG O2 Saturation VBG Base Excess VBG Lactate 2.3 H* Sodium 144 Potassium 4.2 Chloride 105 Carbon Dioxide 27.6 Anion Gap 11.4 H BUN 45 H Creatinine 1.15 Estimated GFR/1.73 m2 >= 60.00 Glucose 713 H* Calcium 10.7 H Magnesium 2.7 H Total Bilirubin 2.7 H Conjugated Bilirubin AST 40 H ALT 532 H Alkaline Phosphatase 716 H Troponin I < 0.05 NT-Pro-B Natriuret Pep 300 Total Protein 7.6 Albumin 2.8 L Lipase Urine Color Urine Clarity Urine pH Ur Specific [place] Urine Protein Urine Ketones Urine Blood Urine Nitrite Urine Bilirubin Urine Urobilinogen Ur Leukocyte Esterase Urine Glucose 06/17/20 06/17/20 06/17/20 09:20 09:20 09:45 WBC RBC Hgb Hct MCV MCH MCHC RDW Plt Count MPV Immature Gran % Neutrophils % Lymphocytes % Monocytes % Eosinophils % Basophils % Nucleated RBC % Absolute Neutrophils Absolute Lymphocytes Absolute Monocytes Absolute Eosinophils Absolute Basophils PT 10.5 INR 1.0 VBG pH VBG pCO2 VBG pO2 VBG HCO3 VBG Total CO2 VBG O2 Saturation VBG Base Excess VBG Lactate Sodium Potassium Chloride Carbon Dioxide Anion Gap BUN Creatinine Estimated GFR/1.73 m2 Glucose Calcium Magnesium Total Bilirubin Conjugated Bilirubin AST ALT Alkaline Phosphatase Troponin I NT-Pro-B Natriuret Pep Total Protein Albumin Lipase 284 Urine Color Yellow Urine Clarity Clear Urine pH 6.0 Ur Specific [place] 1.015 Urine Protein Negative Urine Ketones 40 H Urine Blood Negative Urine Nitrite Negative Urine Bilirubin Negative Urine Urobilinogen 0.2 Ur Leukocyte Esterase Negative Urine Glucose 500 H 06/17/20 06/17/20 06/17/20 11:53 11:53 12:20 WBC RBC Hgb Hct MCV MCH MCHC RDW Plt Count MPV Immature Gran % Neutrophils % Lymphocytes % Monocytes % Eosinophils % Basophils % Nucleated RBC % Absolute Neutrophils Absolute Lymphocytes Absolute Monocytes Absolute Eosinophils Absolute Basophils PT INR VBG pH 7.38 VBG pCO2 47 VBG pO2 74 VBG HCO3 28 VBG Total CO2 25 VBG O2 Saturation 94 VBG Base Excess 2 VBG Lactate Sodium 145 Potassium 4.2 Chloride 109 H Carbon Dioxide 28.8 Anion Gap 7.2 BUN 42 H Creatinine 1.05 Estimated GFR/1.73 m2 >= 60.00 Glucose 580 H* Calcium 9.5 Magnesium Total Bilirubin Conjugated Bilirubin AST ALT Alkaline Phosphatase Troponin I < 0.05 NT-Pro-B Natriuret Pep Total Protein Albumin Lipase Urine Color Urine Clarity Urine pH Ur Specific [place] Urine Protein Urine Ketones Urine Blood Urine Nitrite Urine Bilirubin Urine Urobilinogen Ur Leukocyte Esterase Urine Glucose 06/17/20 06/17/20 06/17/20 13:08 16:05 16:10 WBC RBC Hgb Hct MCV MCH MCHC RDW Plt Count MPV Immature Gran % Neutrophils % Lymphocytes % Monocytes % Eosinophils % Basophils % Nucleated RBC % Absolute Neutrophils Absolute Lymphocytes Absolute Monocytes Absolute Eosinophils Absolute Basophils PT INR VBG pH VBG pCO2 VBG pO2 VBG HCO3 VBG Total CO2 VBG O2 Saturation VBG Base Excess VBG Lactate Sodium Cancelled 148 H Potassium Cancelled 4.3 Chloride Cancelled 112 H Carbon Dioxide Cancelled 29.9 Anion Gap Cancelled 6.1 BUN Cancelled 39 H Creatinine Cancelled 1.02 Estimated GFR/1.73 m2 Cancelled >= 60.00 Glucose Cancelled 469 H D Calcium Cancelled 9.5 Magnesium Total Bilirubin Conjugated Bilirubin AST ALT Alkaline Phosphatase Troponin I NT-Pro-B Natriuret Pep Total Protein Albumin Lipase Cancelled Urine Color Urine Clarity Urine pH Ur Specific [place] Urine Protein Urine Ketones Urine Blood Urine Nitrite Urine Bilirubin Urine Urobilinogen Ur Leukocyte Esterase Urine Glucose 06/18/20 06/18/20 06:45 06:45 WBC 9.20 D RBC 3.83 L Hgb 11.4 L D Hct 37.7 L MCV 98.4 H MCH 29.8 MCHC 30.2 L RDW 14.9 H Plt Count 206 MPV 11.4 H Immature Gran % 1.2 Neutrophils % 91.5 Lymphocytes % 3.0 Monocytes % 4.2 Eosinophils % 0.0 Basophils % 0.1 Nucleated RBC % 0 Absolute Neutrophils 8.42 H Absolute Lymphocytes 0.28 L Absolute Monocytes 0.39 Absolute Eosinophils 0.00 Absolute Basophils 0.01 PT INR VBG pH VBG pCO2 VBG pO2 VBG HCO3 VBG Total CO2 VBG O2 Saturation VBG Base Excess VBG Lactate Sodium 152 H Potassium 3.5 Chloride 116 H Carbon Dioxide 30.3 Anion Gap 5.7 BUN 38 H Creatinine 1.04 Estimated GFR/1.73 m2 >= 60.00 Glucose 311 H D Calcium 9.3 Magnesium 2.3 Total Bilirubin 2.1 H Conjugated Bilirubin 1.53 H AST 37 ALT 327 H Alkaline Phosphatase 484 H Troponin I NT-Pro-B Natriuret Pep Total Protein 6.0 L Albumin 2.2 L Lipase Urine Color Urine Clarity Urine pH Ur Specific [place] Urine Protein Urine Ketones Urine Blood Urine Nitrite Urine Bilirubin Urine Urobilinogen Ur Leukocyte Esterase Urine Glucose
[2020-06-18] MEDS: SODIUM CHLORIDE 0.45% 1,000 ML 125 ML IV ×2 (09:08→20:22)
--- NOTE | 2020-06-18 10:19 | INITIAL_ITS ---
- If Service Date Differs Date of service: 06/18/20 Time of Service: 10:19 Care Management Initial Assess REASON FOR HOSPITALIZATION:: Hyperglycemia, nausea/vomiting PAST MEDICAL HISTORY/PAST SURGICAL HISTORY:: Medical History (Updated 06/17/20 @ 18:13 by Maura Castellanos MD). BPH (benign prostatic hyperplasia). BRBPR (bright red blood per rectum). Chronic use of steroids. DM (diabetes mellitus). Mass of pancreas. Polyarthralgia. Primary malignant neoplasm of colon. Systolic murmur. Surgical History (Updated 06/17/20 @ 18:02 by Maura Castellanos MD). Amputation. right 2nd toe. Colonoscopy - MAC (06/16/17). H/O arthroscopy of left knee. H/O arthroscopy of right knee. Dr Spain. Hemicolectomy (~2009). RIGHT;Mal. neoplasm-cecum. S/P ERCP. 06/14/2020 at [facility] [place] [facility], ERCP with billiary stent insertion PREVIOUS FUNCTIONAL STATUS/SOCIAL/FAMILY SUPPORTS:: Jason lives in [place] with his , Eric. His daughter, Yuli, lives nearby and is very supportive. They also have two sons. He is retired from [employer], working in the [employer] department. 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 He has previously been independent, but recently had a pancreatic mass found, and he has been declining at home. CURRENT FUNCTIONAL STATUS:: Jason was sleeping when CM met with him. CM called and talked to his daughter, Yuli, giving her an update on how he did overnight. Dr. Hernandez met with Jason this morning, and per MD, he appeared to not know what was going on with his health. Dr. Hernandez will be meeting with Eric and Yuli this afternoon at 5pm at the [facility] for a discussion about his healthcare goals. CM reviewed this with RN information systems supervisor and Infection control, who agreed to make this exception to the visitor policy, as they will be having a conversation regarding end of life care. 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 CM will continue to follow. ADVANCE DIRECTIVES:: On file. Eric listed as agent. Has patient been provided with info about the portal/API?: Yes Did the patient sign up for the portal?: Yes (previously) CODE STATUS:: Full Code INSURANCE COVERAGE / FINANCIAL ISSUES:: MCR/ AARP CURRENT HOME/COMMUNITY SERVICES/EQUIPMENT:: Jason currently does not have services or equipment in the home. PRIMARY CARE PHYSICIAN:: Pj Tolliver POTENTIAL DISCHARGE NEEDS:: Palliative/Hospice follow up, discussion of goals of care. PATIENT/FAMILY EDUCATION NEEDS:: Review discharge instructions regarding activity levels and medications, discussion of self care needs and goals of care. ANTICIPATED BARRIERS TO DISCHARGE:: None identified at this time. TRANSPORTATION:: via private vehicle by family. PLAN:: Anticipate Jason will return home, possibly on Hospice vs Palliative follow up. Family meeting scheduled for today at 5pm with his , Eric, his daughter, Yuli and Dr. Hernandez. Disposition to be determined after the family meeting. CM will continue to follow.
--- NOTE | 2020-06-18 12:22 | W.NUTCONSULT ---
Date of service: 06/18/20 Time of Service: 12:22 Nutritional Consult ASSESSMENT: 80 year old male admitted with dehydration, hyperglycemia, metabolic encephalopathy witn cholangitis and pancreatic cancer. Medical chart indicates 18 lbs weight loss in last couple of months. Blood sugars > 300 md/dl since admit, controlled with SS insulin. Home meds include metformin. Most recent A1C: (02/2020) 6.2%. Hypoalbuminemia noted. Jason is a pallative care patient with poor prognosis. Was unable to meet with Jason today, in covid unit, test pending. Diabetic education not appropriate at this time. Following diabetic diet with varied intake. NUTRITIONAL DIAGNOSIS: moderate malnutrition in view of 12% weight loss in last 90 days due to decreased po intake INTERVENTION: diabetic diet glucerna BID MONITORING AND EVALUATION: weight, po intake, labs Time Spent in Nutritional Counseling and Treatment: 0 time
[2020-06-18 12:34] LABS: Anion Gap 8.5 mmol/L (3-11); BUN 42 mg/dL (7-18); CO2 25.5 mmol/L (21.0-32.0); CREATININE 1.03 mg/dL (0.70-1.30); Calcium 9.3 mg/dL (8.5-10.1); Chloride 114 mmol/L (98-107); Glucose 441 mg/dL (74-106); Sodium 148 mmol/L (136-145)
--- NOTE | 2020-06-18 14:30 | DI.CT_ITS ---
EXAM: CT HEAD WO/W CLINICAL HISTORY: AMS, pancreatic ca, concern for mets. TECHNIQUE: Imaging Protocol: Axial computed tomography images with coronal and sagittal reformatted images were created and reviewed. CONTRAST MATERIAL: Intravenous: Omnipaque 350 Contrast volume:100 mL COMPARISON: No exams were available for comparison FINDINGS: Ventricles and Extra axial spaces: Normal in size and morphology for the patient's age. Hemorrhage: None. Cerebral parenchyma: There are areas of decreased attenuation in the white matter most consistent wit h chronic microvascular ischemic change. No evidence of an acute territorial infarct. Enhancement: No suspicious enhancement. Robinson of [place]: Unremarkable. Midline shift: None. Brainstem/Cerebellum: Normal. Calvarium: Normal. Visualized Paranasal sinuses/Mastoids: Clear. IMPRESSION: No intracranial mass, infarct or enhancing lesion. RADIATION DOSE DELIVERED: 1,477.86mGy.cm Total DLP 1,477.86mGy.cm Total DLP DATA REPOSITORY: All CT scans at this facility are submitted to the National Radiology Data Registry (NRDR) Dose Index Registry (DIR) with the [employer] [place] [employer] (ACR). RADIATION OPTIMIZATION: All CT scans at this facility use at least one of these dose optimization te chniques: automated exposure control; mA and/or kV adjustment per patient size (includes targeted exa ms where dose is matched to clinical indication); or iterative reconstruction.
[2020-06-18] MEDS: Normal Saline - Diluent 50 ML VIAL IV (14:41)
[2020-06-18] MEDS: Omnipaque 350 MG/ML 100 ML BTL IJ (14:41)
--- NOTE | 2020-06-18 16:35 | W.PM.PROGNOT ---
Date of Service Date of service: 06/18/20 Time of Service: 16:36 Assessment and Plan Assessment and plan (1) Sepsis: Status: Acute Assessment and plan: Due to suspected ascending cholangitis post ERCP/biliary stent insertion. continue zosyn, IVF. Blood cultures are NGTD. Seen by general surgery - no other interventions recommended at this time. (2) Ascending cholangitis: Status: Acute Assessment and plan: As above (3) Toxic metabolic encephalopathy: Status: Acute Assessment and plan: Likely due to above; as above CT head negative. Consider an ABG. Check ammonia. (4) Mass of pancreas: Status: Acute Assessment and plan: Pathology c/w adenocarcinoma; is getting sent to [facility] tumor board. No evidence of brain mets on CT head. Palliative care will meet with the patient today. (5) Hyperglycemia: Status: Acute Assessment and plan: In setting of dehydration, recent intervention on the pancreas, steroid use, suspected acute infection. Increase long acting insulin and SSI. (6) Chronic use of steroids: Status: Chronic Assessment and plan: No evidence of adrenal insufficiency at this time. Continue at home dose. (7) Dehydration: Status: Acute Assessment and plan: Continue aggressive IVF (8) DVT prophylaxis: Status: Acute Assessment and plan: TEDs/SCDS. Patient has a mention of BRBPR in his [facility] record - will hold off of chemical DVT ppx for now (9) Discharge planning issues: Status: Acute Assessment and plan: Full code at this time. Awaiting palliative care family meeting tonight. Subjective Subjective Interval history since last seen: Mr Laird feels better today. Denies dizziness, chest pain, has difficulty answering if he is short of breath. He is not nauseated now. He had abdominal pain earlier today and received morphine. He had a negative CT of the head. Exam Narrative Exam Narrative: General: Elderly male who does not look well, A&Ox2, slow to respond to questions, somnolent, [place] HEENT: EOMI, dry MM, patient seen in a dark room - I am unable to comment on scleral icterus Cardiovascular: RRR, +TANNER (per patient, chronic) Lungs: CTAB (diminished) Gastrointestinal: Soft, tender in epigastrium, nondistended Extremities: no e/c/c BLE's Objective Last Vital Signs Temp 37.2 C 06/18/20 15:45 Pulse 77 11/03/20 15:45 Resp 18 06/18/20 15:45 BP 134/74 06/18/20 15:45 Pulse Ox 94 06/18/20 15:45 Laboratory Results - last 24 hr 06/17/20 06/17/20 06/18/20 16:05 16:10 06:45 WBC RBC Hgb Hct MCV MCH MCHC RDW Plt Count MPV Immature Gran % Neutrophils % Lymphocytes % Monocytes % Eosinophils % Basophils % Nucleated RBC % Absolute Neutrophils Absolute Lymphocytes Absolute Monocytes Absolute Eosinophils Absolute Basophils Sodium Cancelled 148 H 152 H Potassium Cancelled 4.3 3.5 Chloride Cancelled 112 H 116 H Carbon Dioxide Cancelled 29.9 30.3 Anion Gap Cancelled 6.1 5.7 BUN Cancelled 39 H 38 H Creatinine Cancelled 1.02 1.04 Estimated GFR/1.73 m2 Cancelled >= 60.00 >= 60.00 Glucose Cancelled 469 H D 311 H D Calcium Cancelled 9.5 9.3 Magnesium 2.3 Total Bilirubin 2.1 H Conjugated Bilirubin 1.53 H AST 37 ALT 327 H Alkaline Phosphatase 484 H Total Protein 6.0 L Albumin 2.2 L 06/18/20 06/18/20 06:45 12:11 WBC 9.20 D RBC 3.83 L Hgb 11.4 L D Hct 37.7 L MCV 98.4 H MCH 29.8 MCHC 30.2 L RDW 14.9 H Plt Count 206 MPV 11.4 H Immature Gran % 1.2 Neutrophils % 91.5 Lymphocytes % 3.0 Monocytes % 4.2 Eosinophils % 0.0 Basophils % 0.1 Nucleated RBC % 0 Absolute Neutrophils 8.42 H Absolute Lymphocytes 0.28 L Absolute Monocytes 0.39 Absolute Eosinophils 0.00 Absolute Basophils 0.01 Sodium 148 H Potassium 4.0 Chloride 114 H Carbon Dioxide 25.5 Anion Gap 8.5 BUN 42 H Creatinine 1.03 Estimated GFR/1.73 m2 >= 60.00 Glucose 441 H D Calcium 9.3 Magnesium Total Bilirubin Conjugated Bilirubin AST ALT Alkaline Phosphatase Total Protein Albumin Objective Narrative Objective Narrative: CXR: No intracranial mass, infarct or enhancing lesion.
[2020-06-18] MEDS: Pantoprazole 40 MG VIAL IVP (17:25)
[2020-06-18] MEDS: Atorvastatin 10 MG TAB PO (22:00)
[2020-06-18] MEDS: Tamsulosin 0.4 MG CAPCR PO (22:00)
[2020-06-18] MEDS: Insulin Glargine 300 UNITS/3 ML PEN 10 UNITS SC (22:00)
[2020-06-19] MEDS: MORPHine 2 MG/ML SYR IVP ×2 (02:39→08:42)
[2020-06-19 03:15] VITALS: BP 126/71; PULSE 74; RESP 17; TEMP 36.5; O2SAT 95
[2020-06-19] MEDS: PIPERACILLIN/TAZO 3.375 GM in Normal Saline 50 ML IVPB ×2 (05:25→12:47)
[2020-06-19] MEDS: predniSONE 5 MG TAB 12.5 MG PO (05:25)
[2020-06-19] MEDS: SODIUM CHLORIDE 0.45% 1,000 ML 125 ML IV (05:25)
[2020-06-19 07:14] LABS: Abs Immature Grans 0.06 10^3/uL (0.0-0.06); Absolute Eosinophil Count 0.02 10^3/uL (0.0-0.7); Absolute Lymphocyte Count 0.19 10^3/uL (1.2-3.4); Absolute Monocyte Count 0.27 10^3/uL (0.1-0.8); Absolute Neutrophil Count 6.54 10^3/uL (1.2-6.7); Eosinophils % 0.3; HCT 33.6 % (40.0-50.0); HGB 10.3 g/dL (13.5-17.5); Immature Grans % 0.8; Lymphocytes % 2.7; MCH 29.9 pg (27.0-33.0); MCHC 30.7 % (32.0-36.0); MCV 97.4 fL (80-95); MPV 11.3 fL (8.0-11.0); Monocytes % 3.8; Neutrophils % 92.4; Nucleated RBC 0 %; Platelet Count 180 10^3/uL (130-400); RBC 3.45 10^6/uL (4.36-5.78); RDW 14.4 % (11.8-14.1); RDW-SD 51.5 fL; WBC 7.08 10^3/uL (4.4-10.8)
[2020-06-19 07:20] VITALS: O2SAT 94
[2020-06-19 07:44] LABS: ALT 236 U/L (16-63); AST 40 U/L (15-37); Alkaline Phosphatase 376 U/L (46-116); BUN 36 mg/dL (7-18); Bilirubin, Direct 1.12 mg/dL (0.00-0.20); Bilirubin, Total 1.6 mg/dL (0.2-1.0); CO2 28.9 mmol/L (21.0-32.0); CREATININE 0.93 mg/dL (0.70-1.30); Calcium 8.9 mg/dL (8.5-10.1); Glucose 111 mg/dL (74-106); Lipase 191 U/L (73-393); Magnesium 2.1 mg/dL (1.8-2.4); Total Protein 5.4 g/dL (6.4-8.2)
[2020-06-19 07:49] LABS: Ammonia < 10 umol/L (11-32)
[2020-06-19 08:06] VITALS: BP 100/66; PULSE 83; RESP 19; TEMP 36.7; O2SAT 94
[2020-06-19 08:29] LABS: Anion Gap 7.1 mmol/L (3-11); Chloride 115 mmol/L (98-107); Potassium 3.3 mmol/L (3.5-5.1); Sodium 151 mmol/L (136-145)
--- NOTE | 2020-06-19 09:05 | W.PALPGNOTE ---
Date of service: 06/18/20 Time of Service: 18:05 Assessment and Plan Assessment and plan (1) Dehydration: Status: Acute (2) Hyperglycemia: Status: Acute (3) Adenocarcinoma of pancreas: Status: Acute (4) Palliative care patient: Status: Acute Assessment and plan: Jason is a 80-year-old man who approximately 10 days ago came to the emergency room and was found to have a pancreatic mass. Biopsy confirms it is adenocarcinoma. CT scan shows that it surrounds the vascular structures, stomach, and duodenum. He and his have spoken extensively about Jason's wishes. Per Eric he is very clear that he would not want a lot of interventions given the advanced pancreatic cancer. They are willing to listen to what [facility] has to offer. Jason's numbers are improving i.e. bilirubin, BUN. He did have a CT scan which was negative. Hopefully his mentation will clear significantly so that he can help with the decision-making that is ahead of them. Per Eric and daughter, he is a DNR/DNI. They would choose comfort care unless there is some sort of treatment that might give him both quality and quantity of life. Total time spent 75 minutes I have spent more than 50% of time in counseling with this patient. Subjective Subjective Interval history since last seen: I am seeing Jason this evening. I did seen him in the morning. This morning he was quite confused and sleepy. I met with his Eric and daughter. I brought with me his information on his CAT scans, and communication from [facility]. I also did bring a up-to-date article on pancreatic cancer. We went through the information together. I showed him how his bilirubin was decreasing now that the stent was placed. I also went through the CAT scans in detail. After doing this with and daughter we did address the CO LST/CODE STATUS. Jason's who is his designated DPOA was very clear he would not want resuscitation he would not want CPR. After we completed the CO LST form, I went upstairs to see Jason. We spoke with and daughter on speaker phone. Jason was in a more awake mood. Around noonish because of the pain he did receive some morphine which worked very well. He was joking some. His nurse states that he was drinking and eating about 50% of his meals of clear liquids. Overall improvement. Jason and pressured the few minutes of conversation they could have. Exam Narrative Exam Narrative: Jason was much much more alert. He was talking in 4-5 word sentences. He grabbed my hand looked me in the eye and expressed his appreciation. Jason was able to understanding much better when I removed my mask so that he could lip read. I did talk to him about my conversation with Dr. Parks from [facility] and he responded with some comprehension. Laboratory Tests 06/10/20 06/18/20 06/18/20 10:48 06:45 12:11 BUN 38 H 42 H Total Bilirubin 6.3 H 2.1 H 06/19/20 06:57 BUN Total Bilirubin 1.6 H 06/18/2020 Exam(s) a CT:CT head wo/w EXAM: CT HEAD WO/W CLINICAL HISTORY: AMS, pancreatic ca, concern for mets. TECHNIQUE: Imaging Protocol: Axial computed tomography images with coronal and sagittal reformatted images were created and reviewed. CONTRAST MATERIAL: Intravenous: Omnipaque 350 Contrast volume:100 mL COMPARISON: No exams were available for comparison FINDINGS: Ventricles and Extra axial spaces: Normal in size and morphology for the patient's age. Hemorrhage: None. Cerebral parenchyma: There are areas of decreased attenuation in the white matter most consistent with chronic microvascular ischemic change. No evidence of an acute territorial infarct. Enhancement: No suspicious enhancement. [place]: Unremarkable. Midline shift: None. Brainstem/Cerebellum: Normal. Calvarium: Normal. Visualized Paranasal sinuses/Mastoids: Clear. IMPRESSION: No intracranial mass, infarct or enhancing lesion. Objective Last Vital Signs Temp 98.1 F 06/19/20 08:06 Pulse 83 06/19/20 08:06 Resp 19 06/19/20 08:06 BP 100/66 06/19/20 08:06 Pulse Ox 94 06/19/20 08:06 Laboratory Results - last 24 hr 06/18/20 06/19/20 06/19/20 12:11 06:57 06:57 WBC RBC Hgb Hct MCV MCH MCHC RDW Plt Count MPV Immature Gran % Neutrophils % Lymphocytes % Monocytes % Eosinophils % Basophils % Nucleated RBC % Absolute Neutrophils Absolute Lymphocytes Absolute Monocytes Absolute Eosinophils Absolute Basophils Sodium 148 H 151 H Potassium 4.0 3.3 L Chloride 114 H 115 H Carbon Dioxide 25.5 28.9 Anion Gap 8.5 7.1 BUN 42 H 36 H Creatinine 1.03 0.93 Estimated GFR/1.73 m2 >= 60.00 >= 60.00 Glucose 441 H D 111 H D Calcium 9.3 8.9 Magnesium 2.1 Total Bilirubin 1.6 H Conjugated Bilirubin 1.12 H AST 40 H ALT 236 H Alkaline Phosphatase 376 H Ammonia < 10 L Total Protein 5.4 L Albumin 2.0 L Lipase 191 06/19/20 06:57 WBC 7.08 RBC 3.45 L Hgb 10.3 L Hct 33.6 L MCV 97.4 H MCH 29.9 MCHC 30.7 L RDW 14.4 H Plt Count 180 MPV 11.3 H Immature Gran % 0.8 Neutrophils % 92.4 Lymphocytes % 2.7 Monocytes % 3.8 Eosinophils % 0.3 Basophils % 0.0 Nucleated RBC % 0 Absolute Neutrophils 6.54 Absolute Lymphocytes 0.19 L Absolute Monocytes 0.27 Absolute Eosinophils 0.02 Absolute Basophils 0.00 Sodium Potassium Chloride Carbon Dioxide Anion Gap BUN Creatinine Estimated GFR/1.73 m2 Glucose Calcium Magnesium Total Bilirubin Conjugated Bilirubin AST ALT Alkaline Phosphatase Ammonia Total Protein Albumin Lipase
[2020-06-19 09:27] LABS: BE (Venous) 4 mmol/L (-2-3); HCO3 (Venous) 29 mmol/L (23-28); O2 Sat (Venous) 80 %; TCO2 (Venous) 27 mmol/L (24-29); pCO2 (Venous) 49 mmHg (41-51); pH (Venous) 7.38 (7.31-7.41); pO2 (Venous) 43 mmHg
--- NOTE | 2020-06-19 11:10 | W.PM.PROGNOT ---
Date of Service Date of service: 06/19/20 Time of Service: 11:11 Assessment and Plan Assessment and plan (1) Sepsis: Status: Acute Assessment and plan: Due to suspected ascending cholangitis post ERCP/biliary stent insertion. continue zosyn, IVF. Blood cultures remain w/ NGTD. Seen by general surgery - no other interventions recommended at this time. (2) Ascending cholangitis: Status: Acute Assessment and plan: As above (3) Toxic metabolic encephalopathy: Status: Acute Assessment and plan: Mental status slightly better today. CT head negative. VBG shows preserved pH - CO2 retention not an etiology of his changes to mental status. Ammonia <10. Likely combination of hypernatremia/dehydration, sepsis, and effects of morphine. Continue to monitor mental status. (4) Mass of pancreas: Status: Acute Assessment and plan: Pathology c/w adenocarcinoma; Await patient's and family's decision re goals of care. (5) Hyperglycemia: Status: Acute Assessment and plan: In setting of dehydration, recent intervention on the pancreas, steroid use, suspected acute infection. BG better before breakfast. No change to therapy today. (6) Chronic use of steroids: Status: Chronic Assessment and plan: No evidence of adrenal insufficiency at this time. Continue at home dose. (7) Dehydration: Status: Acute Assessment and plan: Continue aggressive IVF (we are changing fluids to D5W for several hours given hypernatremia). (8) Hypernatremia: Status: Acute Assessment and plan: As above. Recheck BMP at 1600 after 4 hrs of D5W. (9) Hypokalemia: Status: Acute Assessment and plan: Replete and recheck in am (10) DVT prophylaxis: Status: Acute Assessment and plan: TEDs/SCDS. Patient has a mention of BRBPR in his [facility] record - will hold off of chemical DVT ppx (11) Discharge planning issues: Status: Acute Assessment and plan: Code status now DNR/DNI. We are attempting to find out when the tumor board will meet at [facility]. For now, continues to require hospitalization. Subjective Subjective Interval history since last seen: Mr Laird states that he is not in pain right now. He did require morphine x 2 overnight. States he has only had a small BM. He has been on clears and does not seem enthusiastic about having his diet advanced. Denies headache, dizziness, chest pain, does endorse slight shortness of breath, denies n/v. Family meeting with palliative care yesterday: family and patient would like to wait for tumor board opinion prior to committing to further course, and comfort measures are being considered unless there is a treatment that would give the patient both quality and quantity of life. Exam Narrative Exam Narrative: General: Elderly male who looks a little better today, slightly faster with his answers, A&Ox HEENT: EOMI, still very dry MM, no sclear icterus. Cardiovascular: RRR, +TANNER (per patient, chronic) Lungs: CTAB (diminished) Gastrointestinal: Soft, full, nontender Extremities: no e/c/c BLE's Objective Last Vital Signs Temp 36.7 C 06/19/20 08:06 Pulse 83 06/19/20 08:06 Resp 19 06/19/20 08:06 BP 100/66 06/19/20 08:06 Pulse Ox 94 06/19/20 08:06 Laboratory Results - last 24 hr 06/18/20 06/19/20 06/19/20 12:11 06:57 06:57 WBC RBC Hgb Hct MCV MCH MCHC RDW Plt Count MPV Immature Gran % Neutrophils % Lymphocytes % Monocytes % Eosinophils % Basophils % Nucleated RBC % Absolute Neutrophils Absolute Lymphocytes Absolute Monocytes Absolute Eosinophils Absolute Basophils VBG pH VBG pCO2 VBG pO2 VBG HCO3 VBG Total CO2 VBG O2 Saturation VBG Base Excess Sodium 148 H 151 H Potassium 4.0 3.3 L Chloride 114 H 115 H Carbon Dioxide 25.5 28.9 Anion Gap 8.5 7.1 BUN 42 H 36 H Creatinine 1.03 0.93 Estimated GFR/1.73 m2 >= 60.00 >= 60.00 Glucose 441 H D 111 H D Calcium 9.3 8.9 Magnesium 2.1 Total Bilirubin 1.6 H Conjugated Bilirubin 1.12 H AST 40 H ALT 236 H Alkaline Phosphatase 376 H Ammonia < 10 L Total Protein 5.4 L Albumin 2.0 L Lipase 191 06/19/20 06/19/20 06:57 09:22 WBC 7.08 RBC 3.45 L Hgb 10.3 L Hct 33.6 L MCV 97.4 H MCH 29.9 MCHC 30.7 L RDW 14.4 H Plt Count 180 MPV 11.3 H Immature Gran % 0.8 Neutrophils % 92.4 Lymphocytes % 2.7 Monocytes % 3.8 Eosinophils % 0.3 Basophils % 0.0 Nucleated RBC % 0 Absolute Neutrophils 6.54 Absolute Lymphocytes 0.19 L Absolute Monocytes 0.27 Absolute Eosinophils 0.02 Absolute Basophils 0.00 VBG pH 7.38 VBG pCO2 49 VBG pO2 43 VBG HCO3 29 H VBG Total CO2 27 VBG O2 Saturation 80 VBG Base Excess 4 H Sodium Potassium Chloride Carbon Dioxide Anion Gap BUN Creatinine Estimated GFR/1.73 m2 Glucose Calcium Magnesium Total Bilirubin Conjugated Bilirubin AST ALT Alkaline Phosphatase Ammonia Total Protein Albumin Lipase
[2020-06-19 11:19] VITALS: BP 124/75; PULSE 72; RESP 20; TEMP 36.5; O2SAT 94
[2020-06-19] MEDS: Insulin Aspart 300 UNITS/3 ML PEN SC (12:46)
[2020-06-19] MEDS: Docusate Sodium 100 MG CAP PO ×2 (12:46→20:36)
[2020-06-19] MEDS: POTASSIUM CHLORIDE 20 MEQ/100 ML BAG 50 MEQ IVPB (14:04)
[2020-06-19] MEDS: DEXTROSE 5%-WATER 1,000 ML 100 ML IV (14:04)
--- NOTE | 2020-06-19 15:04 | PDOC.CMPRO ---
- If Service Date Differs Date of service: 06/19/20 Time of Service: 15:04 Care Management Progress Note S/O: Jason was sleeping when CM met with him. CM spoke to Eric, his , on the phone regarding the next steps in his care plan. Eric stated that her main concern was bringing him home as soon as possible, with Hospice support. She wants him to be comfortable, and she wants him home with his family. CM discussed Hospice care with Eric, including equipment requests and expectations for family. CM called Emmy at Hospice and informed her of the plan for Jason to be discharged home on Wednesday, with a hospital bed delivered prior to his discharge. Ali will call the family to discuss their needs and to coordinate admission to Hospice. CM called Dara Duarte to ask Father Heather to give Jason the Anointing of the Sick. Jason was transitioned to [employer] today. CM will continue to follow. A: Jason is a 80 year old male admitted to [facility] on 06/17/20 with hyperglycemia. P: Jason transitioned to [employer] today, due to his metastatic cancer. He will return home on Wednesday with a same day admission to Hospice, after the equipment requested has been delivered. His will drive him home via private vehicle when ready. CM will continue to follow and support discharge planning considerations.
--- NOTE | 2020-06-19 15:57 | W.PALPGNOTE ---
Date of service: 06/19/20 Time of Service: 14:57 Assessment and Plan Assessment and plan (1) Adenocarcinoma of pancreas: Status: Acute (2) Palliative care patient: Status: Acute Assessment and plan: Family feels comfortable with moving to hospice. The plan is for him to be discharged on Wednesday and to be admitted to hospice on that day. I did speak to Dr. Castellanos and she will be putting in a hospice consult. He will need different equipment in place prior to going home. I do think that pain is going to be difficult as Jason is not a complainer. Nursing will need to look for signs of distress as well the family. I have assured the family that we will work very diligently to be certain that he is as comfortable as possible. Dr. Castellanos will be paring down his medication list so that only medications for his comfort will be on the list. I have spoken with Maria De Jesus from hospice regarding Jason. They are ready to admit him on Wednesday. The family was very happy with care management, Viky being involved. They felt like they had an anchor in the CD of confusion. Its only been 10 days since finding the mass and during this time there is been rapid deterioration of Jason. Viky was a ray of light Subjective Subjective Interval history since last seen: Family has decided that Jason would prefer to come home and go on hospice. They are not interested in any type of aggressive treatment. They only want comfort. Staff states that Jason is not much for complaining. They really have to look for other signs of pain as he basically says he is okay. I am seeing Jason today as a follow-up from yesterday. He was resting fairly comfortably in bed. I spoke to his nurse and also hospitalist team. Exam Narrative Exam Narrative: He is lying in bed breathing comfortably. He did not move much when I called his name. This is not unusual as he has very little hearing left. Objective Last Vital Signs Temp 97.7 F 06/19/20 11:19 Pulse 72 06/19/20 11:19 Resp 20 06/19/20 11:19 BP 124/75 06/19/20 11:19 Pulse Ox 94 06/19/20 11:19 Laboratory Results - last 24 hr 06/19/20 06/19/20 06/19/20 06:57 06:57 06:57 WBC 7.08 RBC 3.45 L Hgb 10.3 L Hct 33.6 L MCV 97.4 H MCH 29.9 MCHC 30.7 L RDW 14.4 H Plt Count 180 MPV 11.3 H Immature Gran % 0.8 Neutrophils % 92.4 Lymphocytes % 2.7 Monocytes % 3.8 Eosinophils % 0.3 Basophils % 0.0 Nucleated RBC % 0 Absolute Neutrophils 6.54 Absolute Lymphocytes 0.19 L Absolute Monocytes 0.27 Absolute Eosinophils 0.02 Absolute Basophils 0.00 VBG pH VBG pCO2 VBG pO2 VBG HCO3 VBG Total CO2 VBG O2 Saturation VBG Base Excess Sodium 151 H Potassium 3.3 L Chloride 115 H Carbon Dioxide 28.9 Anion Gap 7.1 BUN 36 H Creatinine 0.93 Estimated GFR/1.73 m2 >= 60.00 Glucose 111 H D Calcium 8.9 Magnesium 2.1 Total Bilirubin 1.6 H Conjugated Bilirubin 1.12 H AST 40 H ALT 236 H Alkaline Phosphatase 376 H Ammonia < 10 L Total Protein 5.4 L Albumin 2.0 L Lipase 191 06/19/20 06/19/20 09:22 16:00 WBC RBC Hgb Hct MCV MCH MCHC RDW Plt Count MPV Immature Gran % Neutrophils % Lymphocytes % Monocytes % Eosinophils % Basophils % Nucleated RBC % Absolute Neutrophils Absolute Lymphocytes Absolute Monocytes Absolute Eosinophils Absolute Basophils VBG pH 7.38 VBG pCO2 49 VBG pO2 43 VBG HCO3 29 H VBG Total CO2 27 VBG O2 Saturation 80 VBG Base Excess 4 H Sodium Cancelled Potassium Cancelled Chloride Cancelled Carbon Dioxide Cancelled Anion Gap Cancelled BUN Cancelled Creatinine Cancelled Estimated GFR/1.73 m2 Cancelled Glucose Cancelled Calcium Cancelled Magnesium Total Bilirubin Conjugated Bilirubin AST ALT Alkaline Phosphatase Ammonia Total Protein Albumin Lipase
[2020-06-19 16:15] VITALS: BP 105/69; PULSE 85; RESP 18; TEMP 36.4; O2SAT 97
[2020-06-19] MEDS: Senna TAB 1 TAB PO (20:36)
[2020-06-19] MEDS: Tamsulosin 0.4 MG CAPCR PO (22:01)
[2020-06-19] MEDS: Insulin Glargine 300 UNITS/3 ML PEN 10 UNITS SC (22:19)
[2020-06-19 23:35] VITALS: BP 110/72; PULSE 70; RESP 17; TEMP 36.2; O2SAT 94
[2020-06-20] MEDS: predniSONE 5 MG TAB 12.5 MG PO (05:07)
[2020-06-20] MEDS: Senna TAB 1 TAB PO ×2 (08:11→21:15)
[2020-06-20] MEDS: Docusate Sodium 100 MG CAP PO ×2 (08:11→21:15)
[2020-06-20] MEDS: Pantoprazole 40 MG TABCR PO (08:11)
[2020-06-20 08:14] LABS: SARS-CoV-2 RNA Source Nasopharynx
[2020-06-20 08:15] LABS: SARS-CoV-2 RNA Not Detected (NotDetected)
[2020-06-20] MEDS: Insulin Aspart 300 UNITS/3 ML PEN SC ×3 (08:16→17:19)
[2020-06-20 08:22] VITALS: BP 124/71; PULSE 79; RESP 16; TEMP 37.1; O2SAT 91
[2020-06-20] MEDS: fentaNYL 25 MCG PATCH TD (10:52)
--- NOTE | 2020-06-20 11:16 | PHA.REVIEW ---
Pharmacy Admission Review - Admission Clinical Review (Last Reviewed 06/17/20 @ 20:09 by Karie Lanier MD) Hypokalemia (Acute) Hypernatremia (Acute) Adenocarcinoma of pancreas (Acute) Palliative care patient (Acute) Discharge planning issues (Acute) DVT prophylaxis (Acute) Dehydration (Acute) Hyperglycemia (Acute) Toxic metabolic encephalopathy (Acute) Sepsis (Acute) Ascending cholangitis (Acute) Mass of pancreas (Acute) No Known Allergies Allergy (Unverified 06/10/20 09:53) Height 5 ft 8 in Weight 67.8 kg B[employer]OD [employer] - Comments Comments/Follow Ups: Pt's family decided to go to comfort measures with plan for Hospice @ home - Renal Dosing Renal Dosing: BUN Cancelled 06/19/20 16:00 Creatinine Cancelled 06/19/20 16:00 - Anticoagulation Anticoagulation: Hgb 10.3 g/dL (13.5-17.5) L 06/19/20 06:57 Hct 33.6 % (40.0-50.0) L 06/19/20 06:57 Plt Count 180 10^3/uL (130-400) 06/19/20 06:57 INR 1.0 (0.9-1.1) 06/17/20 09:20 Creatinine Cancelled 06/19/20 16:00 - Opiate Usage Evaluate Pain Scale/Pains Meds: Intervened (Pain 5-6/10, calculated total Morphine dose the last 24 hours with conversion to Fentanyl patch and Morphine as needed) - Relevant Labs Sodium Cancelled 06/19/20 16:00 Potassium Cancelled 06/19/20 16:00 Chloride Cancelled 06/19/20 16:00 Magnesium 2.1 mg/dL (1.8-2.4) 06/19/20 06:57 - DM Control DM Control: Glucose Cancelled 06/19/20 16:00 Finger Stick Blood Glucose 304 - Heart Failure/SD Heart Failure/SD: Troponin I < 0.05 ng/mL (<0.06) 06/17/20 12:20 NT-Pro-B Natriuret Pep 300 pg/mL (<300) 06/17/20 09:20 - BP Control BP Control: Blood Pressure 124/71 Blood Pressure 110/72 - Comments Comments/Follow Ups: See if addition of Fentanyl patch gives better control, may progress to needing a Morphine CADD
--- NOTE | 2020-06-20 13:55 | W.PM.PROGNOT ---
Date of Service Date of service: 06/20/20 Time of Service: 13:55 Assessment and Plan Assessment and plan (1) Comfort measures only status: Status: Acute Assessment and plan: Continue fentanyl patch with prn PO/IV morphine. Plan is to go home on hospice tomorrow. (2) Primary pancreatic cancer with metastasis to other site: Status: Acute Assessment and plan: As above (3) Sepsis: Status: Acute Assessment and plan: Due to suspected ascending cholangitis post ERCP/biliary stent insertion. At this point, pursuing comfort measures only. (4) Ascending cholangitis: Status: Acute Assessment and plan: As above Subjective Subjective Interval history since last seen: The patient was noted to be waking up multiple times asking for pain medications overnight, so he was initiated on a fentanyl patch. He is comfortably asleep at the time of my visit with him - I did not wake him up. Exam Narrative Exam Narrative: General: Elderly male, comfortable in bed, sleeping HEENT: eyes closed Cardiovascular: not auscultated Lungs: nonlabored breathing Gastrointestinal: covered in blankets Extremities: covered in blankets Objective Last Vital Signs Temp 37.1 C 06/20/20 08:22 Pulse 79 06/20/20 08:22 Resp 16 06/20/20 08:22 BP 124/71 06/20/20 08:22 Pulse Ox 91 L 06/20/20 08:22 Laboratory Results - last 24 hr 06/17/20 06/19/20 14:12 16:00 Sodium Cancelled Potassium Cancelled Chloride Cancelled Carbon Dioxide Cancelled Anion Gap Cancelled BUN Cancelled Creatinine Cancelled Estimated GFR/1.73 m2 Cancelled Glucose Cancelled Calcium Cancelled SARS-CoV-2 Source Nasopharynx SARS-CoV-2 (PCR) Not detected
--- NOTE | 2020-06-20 15:43 | CHAPLAIN ---
Jason is resting in bed when I visit. 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 I visited with Jason twice today, as he said he appreciated the company. He said many people have been in and out of his room and he can't keep them all straight. He explained that he feels like he's in a fog. He asked what day it is, and who won the election. 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 He told me the story of how he met Eric. They have been 57 years and have three kids, seven grand children and some greats. He asked me to tell Eric that he is thinking about her. (I gave that message to Pododermatologist Zeny Mcfarlane who was in touch with Eric.) Jason didn't think Eric would be visiting today, but said he wasn't good company anyway. During our afternoon conversation, he told me about his recent move from a house to a trailer that was he and Eric recently remodeled and go new appliance for. He said this new home will be good for Eric. She won't have a lot to deal with. When I asked if he was thinking about what will happen to Eric when he dies, he said, we'll get through, well, she'll get through it. I don't really think about it. I feel like I'm in a fog. I'm just here. Jason is a member of the [facility], and Zeny arranged for Fr. Romero to visit Jason yesterday and offer anointing of the sick. Jason told me that Fr. Romero had been in to see him. I plan to visit again tomorrow.
--- NOTE | 2020-06-20 16:15 | PDOC.CMPRO ---
- If Service Date Differs Date of service: 06/20/20 Time of Service: 16:15 Care Management Progress Note S/O: Jason was sleeping when CM attempted to meet with him, multiple times today. CM spoke to Eric, his regarding the discharge plan. She will be picking up Jason tomorrow at 10 am to transport him home via private vehicle. The equipment being ordered by Hospice will be delivered between 10-11 am by [facility]. Yuli will be at the home to accept the delivery. He will be admitted to Hospice after settling in at home, on Wednesday. CM will continue to follow. A: Jason is a 80 year old male admitted to [facility] on 06/17/20 with hyperglycemia. 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 He will return home on Wednesday with a same day admission to Hospice, after the equipment requested has been delivered. His will drive him home via private vehicle when ready. CM will continue to follow and support discharge planning considerations.
[2020-06-20] MEDS: Tamsulosin 0.4 MG CAPCR PO (21:15)
[2020-06-20] MEDS: Insulin Glargine 300 UNITS/3 ML PEN 10 UNITS SC (21:16)
[2020-06-20 21:23] VITALS: BP 114/78; PULSE 89; RESP 16; TEMP 37.1; O2SAT 95
[2020-06-20] MEDS: Normal Saline Flush 10 ML SYR IVP (21:29)
[2020-06-21] MEDS: predniSONE 5 MG TAB 12.5 MG PO (05:04)
[2020-06-21 07:26] VITALS: BP 116/74; PULSE 87; RESP 16; TEMP 36.5; O2SAT 94
[2020-06-21] MEDS: Docusate Sodium 100 MG CAP PO (08:30)
[2020-06-21] MEDS: Senna TAB 1 TAB PO (08:30)
[2020-06-21] MEDS: Pantoprazole 40 MG TABCR PO (08:30)
[2020-06-21] MEDS: Insulin Aspart 300 UNITS/3 ML PEN SC (08:31)
--- NOTE | 2020-06-21 08:52 | W.PM.DS.N ---
Date of service: 06/21/20 Time of Service: 08:53 DS: Diagnosis Discharge Diagnosis (1) Comfort measures only status: Start date: 06/21/20 Start time: 08:53 Status: Acute Asessment and Plan: Pancreatic mass with metistatic disease s/p ERCP wiht infected biliary stent, made comfort measures on this admission, going home with hospice. (2) Primary pancreatic cancer with metastasis to other site: Start date: 06/21/20 Start time: 08:54 Status: Acute Asessment and Plan: as above (3) Sepsis: Start date: 06/21/20 Start time: 08:54 Status: Acute Asessment and Plan: Due to biliary stent. Home with hospice (4) Ascending cholangitis: Start date: 06/21/20 Start time: 08:55 Status: Acute Asessment and Plan: From above Above case discussed with Dr. Castellanos who is in agreement. Discharge Plan Disposition Patient Disposition: HOME Condition: Deteriorating Discharge Details Reason For Visit: HYPERGLYCEMIA,NAUSEA/VOMITING Admit Date/Time: 06/17/20 18:16 Admit Provider: Maura Castellanos Attending Provider: Maura Castellanos Primary Care Provider: Pj Tolliver Hospital Course Hospital Course: 80 y.o male with PMH recent dx of pancreatic mass s/p ERCP at [facility] 06/14/2020 with biliary stent placement. He presented to [facility] with confusion on admission, abd pain and n/v. He also had an elevated glucose 713 treated with IVF and 5 units regular insulin. He was initiated on empiric zosyn. Dr. Kang met with patient regarding wishes, he was found to have cancer to vascular structures, stomach and duodenum. Both patient and his spoke extensively about his wishes after finding advancement of cancer. Patient wishes to have little interventions in setting of advanced pancreatic cancer. 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 He was placed on a fentanyl patch with po morphine for pain. He is being discharged home, hospice will meet patient and family at home today. Home Meds and New Rx's Prescriptions: New bisacodyl 5 mg Tablet,Delayed Release (Dr/Ec) 5 mg PO DAILY PRN PRNQty: 20 RF: 0 docusate sodium [Colace] 100 mg Capsule 100 mg PO BID Qty: 20 RF: 0 hyoscyamine sulfate [Anaspaz] 0.125 mg Tablet,Disintegrating 0.125 mg sublingual Q4H PRN PRNQty: 10 RF: 0 fentanyl [Duragesic] 25 mcg/hr Patch 72 Hour 25 mcg transdermal Q72H Qty: 5 RF: 0 sennosides [Senokot] 8.6 mg Tablet 1 tab PO BID Qty: 10 RF: 0 morphine 10 mg/5 mL Solution 10 mg PO Q4H PRN PRNQty: 5 RF: 0 lorazepam 1 mg Tablet 1 mg PO Q1H PRN PRN (Reason: Anxiety) Qty: 20 RF: 0 Continued hydrocodone-acetaminophen 5-325 mg tablet 1 tab PO Q6H MDD 4 PRN (Reason: pain) Qty: 30 RF: 0 lorazepam 1 mg tablet 1 mg PO Q4H PRN MDD hospice PRN (Reason: anxiety) Qty: 6 RF: 0 morphine concentrate 100 mg/5 mL (20 mg/mL) solution 5 - 20 mg PO Q1H PRN MDD hospice PRN (Reason: pain or dyspnea) Qty: 30 RF: 0 prednisone 10 mg Tablet 12 mg PO DAILY AM RF: 0 Discontinued atorvastatin [Lipitor] 10 mg tablet 10 mg PO HS Qty: 90 RF: 4 metformin 500 mg tablet 500 mg PO qPM Qty: 90 RF: 3 tamsulosin [Flomax] 0.4 mg capsule 0.4 mg PO HS Qty: 90 RF: 4 Eye Newfolden Advantage 1 EACH capsule 1 ea PO BID RF: 0 Discharge Instructions Instructions: Pancreatic Cancer (GEN) Additional Instructions: Home with hospice Defer to hospice for further medication management Stand Alone Forms: Nursing Discharge Form Activity:: Activity as Tolerated Equipment/Supplies:: No Equipment Needed Diet:: As Tolerated Discharge Orders Discharge Orders: Discharge Order (Routine); Ordered 06/21/20 Ordered By: Radha Henao DS: Summary Status at Discharge Functional status at discharge: uses cane/walker Overall status at discharge: other Mental Status: mental status grossly normal Speech and Movement: speech and movement normal Mood: congruent mood Affect: normal affect Exam Narrative Exam Narrative: General: Elderly male, comfortable in bed, sleeping HEENT: eyes closed Cardiovascular: not auscultated Lungs: nonlabored breathing Gastrointestinal: covered in blankets Extremities: covered in blankets Psych Mental Status: mental status grossly normal Speech and Movement: speech and movement normal Mood: congruent mood Affect: normal affect DS: Data Vitals/I&O Vitals and I&O: Vital Signs Temperature 36.5 C 06/21/20 07:26 Temperature Source Temporal Artery Scan 06/21/20 07:26 Pulse 87 06/21/20 07:26 Pulse Rhythm Regular 06/19/20 07:20 Pulse 112 H 06/17/20 14:50 Respiratory Rate 16 06/21/20 07:26 Respiratory Effort Non-Labored 06/21/20 08:20 Respiratory Depth Normal 06/21/20 08:20 Respiratory Pattern Normal 06/21/20 08:20 Blood Pressure 116/74 06/21/20 07:26 Blood Pressure Mean 87 06/17/20 14:45 Pulse Oximetry 94 06/21/20 07:26 Oxygen Delivery Method Room Air 06/21/20 07:26 Oxygen Flow Rate 0 06/21/20 07:26 Pain Level 5 06/21/20 07:26 Comment 06/17/20 16:30 Intake & Output 06/20/20 06/20/20 06/21/20 11:59 23:59 11:59 Intake Total 580 / 1790 1210 / 1790 Output Total 300 / 1650 1350 / 1650 400 / 400 Balance 280 / 140 -140 / 140 -390 / -390 Intake: IV Oral 580 / 1780 1200 / 1780 Output: Urine 300 / 1650 1350 / 1650 400 / 400 Other: Urine Color Yellow Yellow Yellow Straw Urine Appearance Clear Clear Clear Urine Odor None Normal Comment UP TO TOILET TO VOID AT THIS TIME AND IS VOIDING Stool Size Large Stool Characteristics Soft Liquid Brown Black Green Voiding Methods Toilet Toilet Urinal Data Completed and Pending Completed studies during hospitalization [Text1]: FINDINGS: ABDOMEN: Lung Bases: Dependent atelectasis. Liver: Normal density. The hypodensity in the posterior segment of the right lobe of the liver is unchanged. A small cyst is seen in the dome of the right lobe of the liver. Portal, Superior Mesenteric, and Splenic Veins: Please see the pancreatic section. Gallbladder and Biliary Tract: No radiodense calculus or dilation. There has been interval placement of a biliary stent. Pneumobilia is seen in the liver. Pancreas: There is again seen a 10 cm retroperitoneal mass which appears to arise from the pancreas. It encases portions of the celiac axis, superior mesenteric artery and vein and portal vein. There is displacement and possible involvement of the duodenum. Significant abdominal and retroperitoneal adenopathy is again noted. Spleen: Normal. Adrenals: No masses seen. Kidneys: Normal size, contour and axis. No radiodense stones or obstructive uropathy. No masses seen. There is unchanged dilatation of the proximal right ureter which may be secondary to obstruction by the retroperitoneal process. Abdominal Aorta: Abdominal portion non-dilated. Atherosclerosis. Bowel: Stomach is distended. There is mild thickening of the wall of the distal stomach and proximal duodenum. This may be secondary to the adjacent neoplasm. A secondary infectious or inflammatory process cannot be excluded. There is also mild thickening of loops of small bowel in the lower abdomen. No evidence of acute appendicitis. Colonic diverticulosis without evidence of acute diverticulitis. Partial right colectomy. Peritoneal Cavity: There is again seen mesenteric edema and soft tissue thickening likely secondary to the retroperitoneal mass. Lymph Nodes: Extensive abdominal and retroperitoneal adenopathy. Bones: Stable lucencies are seen in the bones in the pelvis. Degenerative changes are seen in the spine. Soft Tissues: Unremarkable. PELVIS: Bladder: Symmetric distention, no gross wall thickening. Reproductive Organs: Enlarged prostate gland. Lymph Nodes: Within normal limits. Bones: Please see above. IMPRESSION: 1. Interval placement of a biliary stent. 2. 10 cm retroperitoneal mass which encases retroperitoneal vascular structures with possible involvement of the stomach and duodenum. Extensive abdominal and retroperitoneal adenopathy. Probable extension of disease into the mesentery. 3. Mild thickening of the wall of the distal stomach, duodenum and small bowel loops in the abdomen. While an infectious or inflammatory process should be considered neoplastic involvement cannot be excluded. 4. Stable lucencies in the bones of the pelvis. 5. Stable hepatic lesion. 6. Findings were discussed with the emergency department on the date of the examination. Exam(s) a CT:CT head wo/w EXAM: CT HEAD WO/W CLINICAL HISTORY: AMS, pancreatic ca, concern for mets. TECHNIQUE: Imaging Protocol: Axial computed tomography images with coronal and sagittal reformatted images were created and reviewed. CONTRAST MATERIAL: Intravenous: Omnipaque 350 Contrast volume:100 mL COMPARISON: No exams were available for comparison FINDINGS: Ventricles and Extra axial spaces: Normal in size and morphology for the patient's age. Hemorrhage: None. Cerebral parenchyma: There are areas of decreased attenuation in the white matter most consistent with chronic microvascular ischemic change. No evidence of an acute territorial infarct. Enhancement: No suspicious enhancement. [place] of [place]: Unremarkable. Midline shift: None. Brainstem/Cerebellum: Normal. Calvarium: Normal. Visualized Paranasal sinuses/Mastoids: Clear. IMPRESSION: No intracranial mass, infarct or enhancing lesion. 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 neoplasm-cecum S/P ERCP 06/14/2020 at [facility] - EUS, ERCP with billiary stent insertion Family History Mother , 96 Dementia Father , 69 Cancer Sister Personal history of malignant neoplasm colon Colon cancer Sister No problems noted. Sister No problems noted. Brother Heart disease pacemaker Maternal Grandfather No problems noted. Paternal Grandfather No problems noted. Maternal Grandmother No problems noted. Paternal Grandmother No problems noted. Daughter Essential hypertension Son No problems noted. Son No problems noted. Social History Smoking/Tobacco Use Status: Former Tobacco Use Quit Date: 08/16/1964 Tobacco: How many years used: 6 Smoking risk assessment performed?: Yes Alcohol Intake: current Alcohol Intake frequency: 0-2 drinks per day Alcohol type: beer Substance use type: does not use Caregiver/Support person: No Household members: spouse Communication Needs: Hard of Hearing Do you need help understanding health information?: Often Pets and animals: No Sexually active: No Do you think of yourself as: straight/heterosexual Current gender identity: male What is your relationship status?: How often do you talk on the phone with friends or family?: twice per week How often do you get together with friends or relatives?: decline to answer How often do you attend jainism or latter day services?: decline to answer Do you belong to any clubs or organized social groups?: no Panel score (0-1 are the most socially isolated patients): 1 What type of physical activity do you participate in: walking Duration: 30-45 minutes/day Frequency: 5-6 times per week Neda/Holiness: Worship Special neda needs: No Seatbelt use: always Drive intox or ride w/intox lifter driver: No Do you feel safe at home: Yes Do you feel safe in your relationship?: Yes
[2020-06-21] MEDS: LORazepam 1 MG TAB PO (10:37)
--- NOTE | 2020-06-21 14:38 | CHAPLAIN ---
I visited with Jason, shortly before he was discharged this morning. We had two good conversations yesterday. His , Eric, was here to take Jason home. The plan is for Jason to be admitted to Hospice today or tomorrow. Jason is [employer], and Fr. Romero was here earlier in the week to offer Jason the anointing of the sick. Jason seems to be well supported by Eric.
--- NOTE | 2020-06-21 16:09 | PDOC.CMDIS ---
- If Service Date Differs Date of service: 06/21/20 Time of Service: 16:09 LACE Index Scoring Tool - Questions: Length of Stay (in days): 4 - 6 Acuity (Admit via E.D.?): Yes Comorbidities: Diabetes w/o Complication, Metastatic Solid Tumor E.D. Visits: 3 - Answers: Total Score: 15 Risk of Readmission: High Risk Care Management Discharge Reason for Hospitalization: Hyperglycemia, nausea/vomiting Discharge Plan: Jason will return home with his , Eric today. He will be admitted to Hospice later today. He has equipment that will be delivered this morning, which their daughter Yuli will help to facilitate when it arrives. Eric will drive him home via private vehicle. He is happy to be going home. Patient/Family Education Needs: Review discharge instructions regarding medications and expectations of hospice, discussion of goals of care. Services Needed at Discharge: Home Health Care Services ([facility], Hospice)
== END 2020-06-21 10:40 | disposition home or self-care (01) | DRG 871 ==
LOC: ER 15:51 → MS 16:24
PROVIDERS: Admitting Provider Internal Medicine; Emergency Provider Student in an Organized Health Care Education/Training Program; PCP Family Medicine; Visit Provider Internal Medicine
DX: A41.9 Sepsis, unspecified organism (principal); G92 Toxic encephalopathy; K83.09 Other cholangitis; C25.0 Malignant neoplasm of head of pancreas; C78.89 Secondary malignant neoplasm of other digestive organs; C78.4 Secondary malignant neoplasm of small intestine; C79.89 Secondary malignant neoplasm of other specified sites; Z85.038 Personal history of other malignant neoplasm of large intestine; N40.0 Benign prostatic hyperplasia without lower urinary tract symptoms; Z90.49 Acquired absence of other specified parts of digestive tract; Z98.0 Intestinal bypass and anastomosis status; E86.0 Dehydration; E11.65 Type 2 diabetes mellitus with hyperglycemia; Z79.52 Long term (current) use of systemic steroids; M25.50 Pain in unspecified joint; Z66 Do not resuscitate; Z51.5 Encounter for palliative care; E87.6 Hypokalemia
CPT/HCPCS: 36415; 36416; 80048; 80053; 80076; 82805; 82962; 83690; 87040; 93005; 96361; 96365; 96375; 99221; 99223; 99231; 99232; 99233; 99239; 99252; 99255; 99285; U0003; 70470; 71045; 74177; 81003; 82140; 83605; 83735; 83880; 84484; 85025; 85610; 93010; J2270; J2405; J2543; J3480; J3490; J7060; J7512